=== PATIENT | female | born 1995 | race Caucasian/White ===

== ENCOUNTER → 2019-02-24 15:09 | Outpatient (CLI) | payer BC, SELFPAY ==
[2019-02-24 17:34] LABS: Chlamydia Trachomatis by PCR Negative (Negative); Neisserai gonorrhoeae by PCR Negative (Negative); Probe Check PASS; Sample Adequacy Control PASS; Specimen Processing Control PASS
[2019-03-01 16:34] LABS: HPV Reflexed? NOT INDICATED
== END ==
PROVIDERS: Visit Provider Obstetrics & Gynecology
DX: Z12.4 Encounter for screening for malignant neoplasm of cervix (principal); Z11.3 Encounter for screening for infections with a predominantly sexual mode of transmission; Z34.81 Encounter for supervision of other normal pregnancy, first trimester
CPT/HCPCS: 87491; 87591; 88175; G0145

== ENCOUNTER → 2019-03-22 16:42 | Outpatient (CLI) | payer BC, SELFPAY ==
[2019-03-22 17:26] LABS: Absolute Lymphocyte Count 1.95 X10^3/ul (0.83-4.51); Absolute Neutrophil Count 4.3 X10^3/uL (2.0-7.7); Basophil# 0.01 X10^3/uL; Basophil% 0.1 % (0-1); Eosinophils% 1.5 % (0-5); Hematocrit 35.6 % (37-47); Hemoglobin 12.1 g/dl (12.0-15.0); Lymphocyte # 1.95 X10^3/ul (4.0); Lymphocyte % 28.7 % (19-41); Mean Corpuscular Hgb 29.3 pg (27.0-32.0); Mean Corpuscular Volume 86.2 fL (81-99); Mean Platelet Vol. 9.7 fl (6.2-12.0); Monocyte# 0.43 X10^3/uL; Monocyte% 6.3 % (0-10); Neutrophil # 4.29 X10^3/uL (2.7-7.7); Neutrophil % 63.3 % (47-70); Platelet Count 199 K/mm3 (150-450); RBC Distribution Width CV 12.2 % (11.6-14.6); RBC Distribution Width SD 38.3 fl (35.1-43.9); Red Blood Count 4.13 M/mm3 (4.2-5.4); White Blood Count 6.8 K/mm3 (4.4-11.0)
[2019-03-22 17:33] LABS: POSITIVE COUNT NO; POSITIVE DIFFERENTIAL NO; POSITIVE MORPHOLOGY NO
[2019-03-22 17:40] LABS: Color, Urine Yellow (Yellow); Glucose, Dipstick Normal (Normal); Ketone-Dipstick Negative (Negative); Leukocyte Esterase-Dipstick 25 /ul (Negative); Nitrite-Dipstick Negative (Negative); Occult Blood-Urine Negative /ul (Negative); Protein-Dipstick Negative (Negative); Specific Gravity, Urine 1.025 (1.002-1.030); Urine Bilirubin Dipstick Negative (Negative); Urine Clarity Cloudy (Clear); Urine Urobilinogen Normal (Normal)
[2019-03-22 18:06] LABS: Thyroid Stim Hormone (TSH) 1.46 uIU/mL (0.358-3.74)
[2019-03-23 10:33] LABS: HIV - WCH Non-Reactive (Nonreactive); Hepatitis B Surface Antigen Non-Reactive (Nonreactive); Rubella IgG 45.4 IU/mL
[2019-03-25 01:18] LABS: Prenatal RPR NONREACTIVE (NONREACTIVE)
[2019-03-27 11:35] LABS: Hepatitis C Antibody Non-Reactive (Nonreactive)
== END ==
PROVIDERS: Visit Provider Obstetrics & Gynecology
DX: Z34.81 Encounter for supervision of other normal pregnancy, first trimester (principal)
CPT/HCPCS: 36415; 81002; 84443; 85025; 86703; 86762; 86803; 87340

== ENCOUNTER → 2019-05-04 11:27 | Outpatient (CLI) | payer BC, SELFPAY ==
[2019-05-04 11:38] LABS: Mucous, Urine 0 SEEN /hpf (<or=2+)
[2019-05-04 13:42] LABS: Color, Urine Yellow (Yellow); Glucose, Dipstick Normal (Normal); Ketone-Dipstick 5 mg/dl (Negative); Leukocyte Esterase-Dipstick Negative /ul (Negative); Nitrite-Dipstick Negative (Negative); Occult Blood-Urine Negative /ul (Negative); Protein-Dipstick Negative (Negative); Urine Bilirubin Dipstick Negative (Negative); Urine Clarity Sl. Cloudy (Clear); Urine Urobilinogen Normal (Normal)
[2019-05-04 13:43] LABS: Hematocrit 35.1 % (37-47); Hemoglobin 11.7 g/dL (12.0-15.0); Mean Corp Hgb Conc 33.3 g/dL (32-36); Mean Corpuscular Hgb 30.8 pg (27.0-32.0); Mean Corpuscular Volume 92.4 fL (81-99); Platelet Count 206 K/mm3 (150-450); RBC Distribution Width SD 43.7 fl (35.1-43.9); White Blood Count 9.3 K/mm3 (4.4-11.0)
[2019-05-04 13:49] LABS: Red Blood Cells-Urine 0-5 SEEN /hpf (0-5); Squamous Epithelial Cells - UA 5-10 SEEN /hpf (5-10); White Blood Cells 0-5 SEEN /hpf (0-5)
[2019-05-04 13:50] LABS: Amorphous Sediment 2+; Bacteria 1+ /hpf (None Seen)
[2019-05-04 13:54] LABS: AST(SGOT) 17 U/L (15-37); Alanine Aminotransfer ALT/SGPT 23 U/L (13-56); Albumin, Serum 3.5 g/dL (3.2-5.0); Alkaline Phosphatase 53 U/L (45-117); Anion Gap 7 (5-15); BUN 10 mg/dL (7-18); BUN/Creat Ratio 16.1 RATIO (10-20); Calcium,Total 8.6 mg/dL (8.5-10.1); Chloride 107 mmol/L (98-107); Creatinine, Serum 0.62 mg/dL (0.55-1.02); EST Glomerular Filtration Rate 126 mL/min (>60); Est Glom Filt Rate - Afr Amer 153 mL/min (>60); Globulin 3.4 g/dL (2.2-4.2); Glucose 92 mg/dL (74-106); Protein, Total 6.9 g/dL (6.4-8.2); Sodium Level 140 mmol/L (136-145)
== END ==
PROVIDERS: Visit Provider Obstetrics & Gynecology
DX: M54.9 Dorsalgia, unspecified (principal)
CPT/HCPCS: 36415; 80053; 81001; 85027; 87086; 87088

== ENCOUNTER 2019-05-23 08:06 | Emergency (ER) | payer BC, SELFPAY ==
[2019-05-23 08:06] VITALS: BP 107/69; PULSE 102; RESP 18; TEMP 36.6; O2SAT 99; BMI 19.8
--- NOTE | 2019-05-23 08:40 | ED.DCSUM_ITS ---
History of Present Illness Chief Complaint: Back Current Severity: Moderate Maximum Severity: Moderate Narrative: She presents with 2 to 3-week history of paraspinal pain. She is in her second trimester . She had quite a tumultuous first trimester with quite a bit of vomiting, she thinks this may have started her symptoms. She has seen a chiropractor and this certainly improved her symptoms. She denies any chest pain shortness of breath fever or chills. No cough or congestion. There is no radiculopathy. There is no bowel or bladder compromise. No dysuria. She saw her [employer] POLICE OFFICER had a urinalysis and the urine culture which were negative. Pain is constant, waxing and waning, achy Past Medical History - Allergies and Home Meds Allergies/Adverse Reactions: Allergies No Known Allergies Allergy (Verified 05/23/19 08:08) Primary Care Physician: Care Physician,No Primary [Primary Care Provider] - Past Medical History: None Lives: Spouse/ Significant Other Smoking Status: Never smoker Review of Systems All systems negative except as indicated General: Denies: Fever Cardiovascular: Denies: Chest pain Respiratory: Denies: Dyspnea Gastrointestinal: Reports: Nausea, - - She has nausea of , she is not nauseated now but she still has episodes in the second trimester. Denies: Abdominal pain, Vomiting Genitourinary: Denies: Dysuria, Hematuria, Frequency Musculoskeletal: Reports: Back pain. Denies: Neck pain Skin: Denies: Abrasions Neurological: Denies: Weakness, Parasthesia, Numbness Hematologic: Denies: Easy bruising Physical Exam Vital Signs/Narrative: Vital Signs Temp Pulse Resp BP Pulse Ox 05/23/19 08:06 97.9 F 102 H 18 107/69 99 General: Well nourished, Well developed ENT: Moist mucous membranes Cardiovascular: Regular rate, Regular rhythm Respiratory: No distress, CTA bilaterally Abdomen: Soft, Nontender, - - Gravid to date Back: - - There is lower thoracic and upper lumbar paraspinal tenderness. There is no spinal tenderness. Extremities: No edema. Negative for: Tenderness Skin: Normal color Neurological: - - Equal patellar reflexes bilaterally, 2+. Normal Achilles reflexes. Negative straight leg test. Normal plantar flexion of both feet normal dorsiflexion of both great toes Diagnostic/Tx/Re-eval - Medical Decision Making Patient has paraspinal tenderness, this is quite reproducible and muscular. No further imaging is needed. After trigger point injections with 1% lidocaine her symptoms significantly improved. I will discharge her with muscle relaxants and analgesia for home. Procedures Procedure(s): Trigger point injection: Total of 8 mL of 1% lidocaine without epinephrine were used. 2 different trigger points along the right side paraspinal muscles were used. Patient tolerated procedure well she improved. ED Disposition - Plan for ED Patient: Disposition: Home or Assisted Living Instructions: Back Sprain/Strain Prescriptions: Hydrocodone Bitart/Apap 5-325 [[place] 5MG-325MG] 1 tab PO Q4H PRN PRN 3 Days #12 tab PRN Reason: Pain Prescription Printed Diazepam [Valium] 5 mg PO TID PRN #12 tab PRN Reason: Muscle Spasm Prescription Printed Referrals: Hayes Edwards DO [NON-STAFF] -
[2019-05-23] MEDS: diazePAM 5 MG Tablet PO (09:00)
[2019-05-23] MEDS: oxyCODONE 5 MG Tablet PO (09:00)
--- NOTE | 2019-05-23 09:05 | ED.VIS.GEN ---
History of Present Illness Chief Complaint: Back Past Medical History - Allergies and Home Meds Allergies/Adverse Reactions: Allergies No Known Allergies Allergy (Verified 05/23/19 08:08) Primary Care Physician: Hayes Edwards DO [NON-STAFF] - Lives: Spouse/ Significant Other Smoking Status: Never smoker Physical Exam Vital Signs/Narrative: Vital Signs Temp Pulse Resp BP Pulse Ox 05/23/19 08:06 97.9 F 102 H 18 107/69 99 ED Disposition - Plan for ED Patient: Disposition: Home or Assisted Living Instructions: Back Sprain/Strain Prescriptions: Hydrocodone Bitart/Apap 5-325 [[place] 5MG-325MG] 1 tab PO Q4H PRN PRN 3 Days #12 tab PRN Reason: Pain Prescription Printed Diazepam [Valium] 5 mg PO TID PRN #12 tab PRN Reason: Muscle Spasm Prescription Printed Referrals: Areli Manriquez MD [STAFF PHYSICIAN] - 3-5 Days
== END 2019-05-23 09:17 | disposition home or self-care (01) ==
PROVIDERS: Emergency Provider Emergency Medicine
DX: M54.9 Dorsalgia, unspecified (principal); O26.892 Other specified pregnancy related conditions, second trimester; R11.0 Nausea; Z79.899 Other long term (current) drug therapy; Z3A.00 Weeks of gestation of pregnancy not specified
CPT/HCPCS: 20552; 99283; A4216

== ENCOUNTER 2019-05-25 18:25 | Outpatient (CLI) | payer BC, SELFPAY ==
[2019-05-25 18:46] VITALS: BMI 20.2
[2019-05-25 19:24] LABS: Red Blood Cells-Urine 0 SEEN /hpf (0-5)
[2019-05-25 19:26] LABS: Color, Urine Yellow (Yellow); Glucose, Dipstick Normal (Normal); Leukocyte Esterase-Dipstick 25 /ul (Negative); Nitrite-Dipstick Negative (Negative); Occult Blood-Urine Negative /ul (Negative); Protein-Dipstick Negative (Negative); Specific Gravity, Urine 1.015 (1.002-1.030); Urine Bilirubin Dipstick Negative (Negative); Urine Clarity Clear (Clear); Urine Urobilinogen 4 mg/dl (Normal)
[2019-05-25 19:30] LABS: Ketone-Dipstick 150 mg/dl (Negative)
[2019-05-25 19:32] LABS: White Blood Cells 0-5 SEEN /hpf (0-5)
[2019-05-25 19:33] LABS: Bacteria 1+ /hpf (None Seen); Mucous, Urine 0 SEEN /hpf (<or=2+); Squamous Epithelial Cells - UA 0-5 SEEN /hpf (5-10)
--- NOTE | 2019-05-25 19:43 | OB.TRI.NOTE ---
History of Present Illness Reason For Visit: BACK PAIN Allergies No Known Allergies Allergy (Verified 05/23/19 08:08) Laboratory Studies: Laboratory Tests 05/25/19 Range/Units 18:50 Urine Color Yellow (Yellow) Urine Clarity Clear (Clear) Urine pH 6.0 (5.0 - 8.0) Ur Specific [place] 1.015 (1.002-1.030) Urine Protein Negative (Negative) mg/dl Urine Glucose (UA) Normal (Normal) mg/dl Urine Ketones 150 H (Negative) mg/dl Urine Occult Blood Negative (Negative) /ul Urine Nitrite Negative (Negative) Urine Bilirubin Negative (Negative) mg/dL Urine Urobilinogen 4 H (Normal) mg/dl Ur Leukocyte Esterase 25 H (Negative) /ul Urine RBC 0 SEEN (0-5) /hpf Urine WBC 0-5 SEEN (0-5) /hpf Ur Squamous Epith Cells 0-5 SEEN (5-10) /hpf Urine Bacteria 1+ (None Seen) /hpf Urine Mucus 0 SEEN (<or=2+) /hpf
[2019-05-25] MEDS: Dextrose 5%-Lactated Ringers 1,000 ML 999 ML IV (19:55)
--- NOTE | 2019-05-25 22:01 | OB.TRI.HP_ITS ---
History of Present Illness Date of Service: 05/25/19 Was patient seen by the physician?: Yes Reason For Visit: BACK PAIN Date of Service: 05/25/19 Final CALEB: 09/30/19 Gestational age: 21 Weeks and 5 Days History of Present Illness: Aixa states she was in the ER earlier this week with left lower back pain; she denies urinary frequency, urgency, burning or itching. She was given a prescription for [place] 5-325, 1 PO Q 4 hours as needed, for a total of 12 doses with no refills, and Diazepam, 5mg PO 3 times daily as needed, for a total of 12 doses, also with no refills. She states she has not taken either of these medications out of concern for the safety of her . She reports frequent nausea, for which she is taking Zofran at home; she denies vomiting. She states that she has eaten or drank very little over the past 3 days and feels very weak. Allergies No Known Allergies Allergy (Verified 05/23/19 08:08) Laboratory Studies: Laboratory Tests 05/25/19 Range/Units 18:50 Urine Color Yellow (Yellow) Urine Clarity Clear (Clear) Urine pH 6.0 (5.0 - 8.0) Ur Specific [place] 1.015 (1.002-1.030) Urine Protein Negative (Negative) mg/dl Urine Glucose (UA) Normal (Normal) mg/dl Urine Ketones 150 H (Negative) mg/dl Urine Occult Blood Negative (Negative) /ul Urine Nitrite Negative (Negative) Urine Bilirubin Negative (Negative) mg/dL Urine Urobilinogen 4 H (Normal) mg/dl Ur Leukocyte Esterase 25 H (Negative) /ul Urine RBC 0 SEEN (0-5) /hpf Urine WBC 0-5 SEEN (0-5) /hpf Ur Squamous Epith Cells 0-5 SEEN (5-10) /hpf Urine Bacteria 1+ (None Seen) /hpf Urine Mucus 0 SEEN (<or=2+) /hpf Physical Exam General: Alert, Oriented x3, Cooperative, Lethargic HEENT: PERRLA Cardiovascular: Regular rate, Regular Rhythm Lungs: Clear to auscultation Abdomen: Soft, Non Tender, Non-Distended, Gravid, - - Positive CVA tenderness lower right side Extremities:: No cyanosis, No edema, Normal pulses Neurological: Cranial nerves II-XII grossly intact, Deep Tendon Reflexes 2+/4 and Symmetrical, Neuro grossly intact, Muscle tone normal Estimated gestational size: Appropriate for gestational size Presentation: Unable to assess NST - FHR Rate Baby A Baseline: 140 Variability:: Moderate Accelerations:: 10 x 10 Decelerations:: None NST Reactive:: Appropriate for gestational age Uterine Activity:: Irritability resolving with IV hydration Impression/Plan Impression: IUP @ 21w5d FHTs appropriate for gestational age Uterine irritability resolving Urinary Ketonuria UTI Weakness related to poor nutrition over past 3 days Plan: D5LR, 500ml bolus, then 500ml at 125 ml/hr Regular diet Discussed with Dr. Benny Wilkins, 1 gm IVPB x 1 now Keflex 500mg PO TID x 3 days Discharge home with instructions for comfort measures, nutritional and PO hy dration measures, and use of previously prescribed pain medication Keep next appointment with Dr. Manriquez Call if s/s do not resolve
[2019-05-25] MEDS: Cefazolin 1 GM/50 ML BAG IV (22:58)
[2019-05-26 00:02] VITALS: BP 96/53; PULSE 81; RESP 18; TEMP 36.6
== END 2019-05-25 23:55 | disposition home or self-care (01) ==
LOC: WPOUT 18:32 → WP 18:32
PROVIDERS: Referring Provider Obstetrics & Gynecology; Visit Provider Obstetrics & Gynecology
DX: O23.42 Unspecified infection of urinary tract in pregnancy, second trimester (principal); R82.4 Acetonuria; R11.0 Nausea; Z3A.21 21 weeks gestation of pregnancy
CPT/HCPCS: 96361 ×3; 96365; 59025; 59050; 81001; 87086; 87088; 99218; G0378

== ENCOUNTER → 2019-07-13 08:34 | Outpatient (CLI) | payer BC, SELFPAY ==
[2019-07-13 10:42] LABS: Hematocrit 32.7 % (37-47); Hemoglobin 10.8 g/dL (12.0-15.0); Mean Corpuscular Hgb 30.9 pg (27.0-32.0); Mean Corpuscular Volume 93.4 fL (81-99); Platelet Count 212 K/mm3 (150-450); RBC Distribution Width CV 12.7 % (11.6-14.6); RBC Distribution Width SD 43.9 fl (35.1-43.9); White Blood Count 7.2 K/mm3 (4.4-11.0)
[2019-07-13 10:48] LABS: Glucose Challenge Gest 1H 50g 109 mg/dL (70-140)
== END ==
PROVIDERS: Visit Provider Obstetrics & Gynecology
DX: Z34.83 Encounter for supervision of other normal pregnancy, third trimester (principal)
CPT/HCPCS: 36415; 82950; 85027

== ENCOUNTER → 2019-09-07 14:51 | Outpatient (CLI) | payer BC, SELFPAY | PROVIDERS: Visit Provider Obstetrics & Gynecology | DX: Z36.85 Encounter for antenatal screening for Streptococcus B (principal) | CPT/HCPCS: 87081 ==

== ENCOUNTER 2019-10-05 15:57 | Inpatient (IN) | payer BC, SELFPAY ==
[2019-10-05 16:05] VITALS: BMI 24.3
[2019-10-05] MEDS: 0.9% Saline Lock 10 ML Syringe IV (16:25)
[2019-10-05 16:40] LABS: Absolute Lymphocyte Count 1.85 X10^3/uL (0.83-4.51); Absolute Neutrophil Count 7.6 X10^3/uL (2.0-7.7); Basophil# 0.02 X10^3/uL; Basophil% 0.2 % (0-1); Eosinophil# 0.06 X10^3/uL; Eosinophils% 0.6 % (0-5); Hematocrit 37.4 % (37-47); Hemoglobin 12.4 g/dL (12.0-15.0); Lymphocyte # 1.85 X10^3/ul (4.0); Lymphocyte % 17.9 % (19-41); Mean Corp Hgb Conc 33.2 g/dL (32-36); Mean Corpuscular Hgb 29.3 pg (27.0-32.0); Mean Corpuscular Volume 88.4 fL (81-99); Mean Platelet Vol. 10.8 fl (6.2-12.0); Monocyte% 6.8 % (0-10); NRBC Flagged by Analyzer 0 % (0-5); Neutrophil # 7.64 X10^3/uL (2.7-7.7); Platelet Count 244 K/mm3 (150-450); RBC Distribution Width SD 41.9 fl (35.1-43.9); Red Blood Count 4.23 M/mm3 (4.2-5.4); White Blood Count 10.3 K/mm3 (4.4-11.0)
--- NOTE | 2019-10-05 16:45 | HP.PCM_ITS ---
- Problem List (1) 40 weeks gestation of Status: Acute History Date of Admission: 10/05/19 Final CALEB: 09/30/19 Final CALEB Source: LMP Gestational age: 40 Weeks and 5 Days History of this : This is a 24 year-old, G [], P [], at 40 weeks gestational age. Allergies No Known Allergies Allergy (Verified 10/05/19 16:06) Home Medications: Home Medications 47/Iron/Folate 1/Dha [Virt-Pn Dha Softgel] 1 cap PO DAILY 05/23/19 Smoking Status: Never smoker Alcohol: None Number of Fetus(es): 1 NST - FHR Rate Baby A Baseline: 130 Variability:: Moderate Accelerations:: 15 x 15 Decelerations:: None NST Reactive:: Yes FHR Category:: Category I Uterine Activity:: U2-3 minutes History Past Pregnancies: Past Pregnancies Delivery Date Name GA/ Weeks Outcome Route Wt Sex Labor Length Anesthesia Delivery Location Provider FOB Labs: Mom's Problem List Problem Status Onset Code 40 weeks gestation of Acute Z3A.40 Mom's Labs & Results 10/05/19 10/05/19 16:25 16:25 WBC 10.3 RBC 4.23 Hgb 12.4 Hct 37.4 MCV 88.4 MCH 29.3 MCHC 33.2 RDW Std Deviation 41.9 RDW Coeff of Arielle 13.0 Plt Count 244 MPV 10.8 Immature Gran % (Auto) 0.500 Neut % (Auto) 74.0 H Lymph % (Auto) 17.9 L [place] % (Auto) 6.8 Eos % (Auto) 0.6 Baso % (Auto) 0.2 Absolute Neuts (auto) 7.6 Absolute Lymphs (auto) 1.85 Nucleated RBC % 0 Blood Type A POSITIVE Antibody Screen NEGATIVE Course Did the patient receive Yes care? Labs Blood Type: A RH: POSITIVE RPR/VDRL/Syphilis Nonreactive Rubella status Immune HbSAg Negative Date Done: 03/22/19 Chlamydia Negative Gonorrhea Negative HIV/AIDS Non-Reactive Group B Strep: Negative Current Obstetrical History Gestational Diabetes No Incompetent Cervix No Infertility No IUGR No Macrosomia No Hypertension/Pre-eclampsia No Placenta Previa/Abruption No PTL/PROM No Uterine anomaly No Oligohydramnios No Polyhydramnios No Multiple gestation No Past Medical History Asthma No Diabetes No Hypertension No Heart disease No Mitral valve prolapse No Neurologic/Seizure disorder/ No Migraines Kidney disease No Liver disease No Varicosities No Clotting disorders/Hx of DVT No Thyroid Dysfunction No Other medical diseases No Psychiatric disorders No Major trauma No Abnormal PAP smear No Sleep apnea No Mammogram in the last 2 years No Social History Marital Status: Alleged father Dc Hx Smoking No Smoking Status Never smoker How long have you used n/a substances (years)? Expected Infant Delivery Method: Spontaneous Vaginal Number of Visits: 16 Review of Systems Constitutional: Denies: Chills, Fever, Weight Change HEENT: Denies: Head Aches, Sinus Congestion, Sinus Drainage Cardiovascular: Denies: Chest Pain, Palpitations Respiratory: Denies: Cough, Shortness of breath at rest, Sputum production Gastrointestinal: Denies: Abdominal Pain, Nausea, Vomiting Genitourinary: Denies: Dysuria Musculoskeletal: Denies: Joint Pain, Joint Tenderness Skin: Denies: Rash, Wounds Neurological: Denies: Numbness, Tingling, Focal weakness Psychiatric: Denies: Anxiety, Depression, Homicidal Ideations, Suicidal Ideations Hematologic/ Lymphatic: Denies: Easy Bruising, Easy Bleeding Physical Exam General: Alert, Oriented x3, No apparent distress HEENT: Atraumatic, Normocephalic. Negative for: Thyromegaly, Lymphadenopathy Cardiovascular: Regular rate, Regular Rhythm Lungs: Clear to auscultation Abdomen: Bowel Sounds Present, Gravid Neurological: Deep Tendon Reflexes 2+/4 and Symmetrical, Neuro grossly intact LADLE MECHANIC: Normal external genitalia. Negative for: Vulvar lesions Estimated gestational size: Appropriate for gestational size Presentation: Cephalic Cervix Dilation (cm): 3 Station: -1 Effacement (%): 80 Assessment/Plan All Active Problems 40 weeks gestation of (Acute) A: This is a 24 year-old, G [1], P [0], at 40 weeks gestational age. SVE 3/80/-1 anterior soft Early active labor Baseline FHR 125, +accels, -decels, moderate variability. Category I tracing P: Anticipate plan on chart. Very detailed. Toy Assembly Supervisor with patient. Natural labor with minimal interventions Saline lock okay Delayed cord clamping until cord completely stops pulsating Wants 2 hours of immediate skin to skin, with vernix rubbed into baby. No Erythromycin ointment or Hep B vaccine for infant, but okay for Vitamin K for circumcision Plans to strictly breastfeed and as soon as possible after delivery Declines Pitocin for active management. Educated on expectant management and PPH protocols. Plan to follow plan in detail as close as possible to ensure patient wishes are met, but safety of mother and priority
--- NOTE | 2019-10-05 20:16 | PN_ITS ---
Progress Note This is a late entry for 10/05/2019 at 2000 S: Breathing, moaning through contractions; spouse, marketing operations coordinator bedside and supportive O: AVSS FHTs: 145 baseline with accels, early decelerations, and periodic variable decelerations UCs: Q 2-3 Cervix: 5-6/90/-1; moderate meconium noted with AROM at 1933 A: 24 yo at 40w5d gestation by L=12w4d US Active labor GBS negative A positive Meconium stained fluid Cat 2 FHTs P: Continue to follow plan as closely as possible within limits of maternal/ safety; patient, spouse and marketing operations coordinator aware of change in POC r/t presence of meconium and agreeable with adequate shared decision making Continuous monitoring Pediatrics to attend delivery Anticipate vaginal delivery
[2019-10-05] MEDS: Lactated Ringers 500 ML 999 ML IV (21:13)
--- NOTE | 2019-10-05 22:33 | PCM.OPRPT ---
Vaginal Delivery Maternal Presentation: Active Labor Presented L&D in afternoon in early labor; progressed well to active labor by early evening Amniotic Membrane Rupture Type: Artificial Rupture of Membrane time: 1932 Amniotic Fluid Description: Moderate meconium Final CALEB: 09/30/19 Final CALEB Source: US <20 weeks Gestational age: 41 Weeks and 1 Days Date of Procedure: 10/05/19 Pre-Operative Diagnosis: Labor Post-Operative Diagnosis: Surgery/ Procedure Performed: Spontaneous Vaginal Delivery Type of Anesthesia: Local with 1% lidocaine - for repair of first degree vaginal laceration Description of Procedure: CTSP when she was thin left anterior lip and +1 station; pushed past lip and quickly brought vertex to +2 station; FHR variable decelerations into 60s and 70s with good recovery noted with contractions, variability maintained; maternal position changes, O2 per FM and IV LR bolus provided; continued maternal effort resulted in of a viable male , OA to AMIRA, nuchal cord x 1 reduced at perineum; nuchal hand noted; shoulders followed quickly with gentle maternal effort; placed on maternal abdomen; as moderate meconium had been present since AROM at 1933, cord was immediately clamped by CNM, cut by FOB under CNM supervision, and was bulb suctioned, dried and stimulated by awaiting pediatric personel, APGARs 8/8; placenta delivered spontaneously, Ramirez Mechanism, intact, 3-vessel cord, marginal insertion; arterial and venous cord blood gases were drawn; first degree vaginal laceration repaired with 3-0 Vicryl with local anesthetic of 1% lidocaine, good hemostasis obtained; EBL 250 Presentation: Vertex, AMIRA Placental Delivery Description: Spontaneous Placenta Disposition: [facility] Cord Vessel Description: 3 Vessels Cord Entanglement: Around neck x 1, loose Estimated Blood Loss: 250 A gender: Male (1 minute): 8 (5 minute): 8 Episiotomy Description: None Laceration: Midline, 1st degree
--- NOTE | 2019-10-05 22:52 | DCINST_ITS ---
Discharge Diet: No Restrictions Discharge Activity: Return to Normal Activity, No Restrictions, May Drive, May Shower, May Take a Tub Bath Return to work on:: 11/16/19 - After checkup May resume sexual activity in: 6-8 weeks - after checkup Weight Bearing Status: Weight bearing as tolerated Lifting Restrictions: nothing heavier than the baby x 2 weeks Additional Activity Instructions:: Minimize cooking, cleaning, shopping or long car trips for two weeks; try to get at least 8 hours sleep in 24 hour for the first two weeks - sleep when the baby sleeps Call your doctor if your incision/area has: Continuous Slow Oozing, Sudden Increased Bleeding, Increased Pain/ Swelling, Foul Smelling Discharge Call your doctor if you observe: Fever of 101 or Higher, Coldness, Increased Pain, Change in Color, Inability to urinate, Inability to have a bowel movement, Using more than one pad per hour, Shortness of breath, Dizziness, Chest pain, In creased palpitations (irregular heartbeat), Calf discomfort, Uncontrolled pain Suture Line Care: Avoid Pulling/Pushing Additional Instructions: If you experience any of the following, contact your healthcare provider. * Bleeding that soaks a pad every hour for 2 hours * Fever 100.4 or higher * Unrelieved incision or abdominal pain * Swelling, redness, discharge or bleeding from your incision or episiotomy site * Your incision begins to separate * Problems urinating (including inability to urinate or burning while urinating) . * Visual changes * Severe headache * Flu-like symptoms * Pain or redness in one of both of your breasts * Pain, warmth, tenderness or swelling in your legs, especially the calf area * Frequent nausea and vomiting * Symptoms of depression or anxiety If you experience any of the following, call 911 or go to the nearest Emergency Room. * Chest pain * Problems breathing * Seizure activity * Partial or complete paralysis of a body part, slurred speech, weakness or drooping of the face, or a sudden inability to walk or hold your balance Allergies/Adverse Reactions: Allergies No Known Allergies Allergy (Verified 10/05/19 16:06) Medications to take at Discharge RX: 47/Iron/Folate 1/Dha [Virt-Pn Dha Softgel] 1 cap PO DAILY 05/23/19 Please Follow Up With: Pamela Power CNM When: 6 weeks for checkup Primary Care Physician: Care Physician,No Primary [Primary Care Provider] - Test Results: Test results from this visit will be discussed in further detail at your follow- up appointment, if applicable.
[2019-10-06 04:00] VITALS: BP 111/65; PULSE 91; RESP 18; TEMP 36.5
[2019-10-06 07:46] VITALS: BP 122/69; PULSE 92; RESP 18; TEMP 37
[2019-10-06 08:28] LABS: Hematocrit 36.5 % (37-47); Hemoglobin 12.2 g/dL (12.0-15.0); Mean Corp Hgb Conc 33.4 g/dL (32-36); Mean Corpuscular Hgb 29.5 pg (27.0-32.0); Mean Corpuscular Volume 88.4 fL (81-99); Mean Platelet Vol. 10.6 fl (6.2-12.0); Platelet Count 244 K/mm3 (150-450); RBC Distribution Width CV 13.2 % (11.6-14.6); RBC Distribution Width SD 42.5 fl (35.1-43.9); Red Blood Count 4.13 M/mm3 (4.2-5.4); White Blood Count 13.9 K/mm3 (4.4-11.0)
--- NOTE | 2019-10-06 08:39 | PCM.PN.OB ---
Patient Problems: Active and Suspected Problems 40 weeks gestation of (Acute) Subjective: Minimal diet so far but tolerating well; pain well controlled, passing flatus, has been up and voided twice; well; spouse and family bedside and supportive Objective: AVSS Breasts soft, nipples atraumatic Fundus firm, midline, u/2, lochia small Perineal repair well approximated, edematous, no drainage, erythema or ecchymosis noted - Physical Exam Vitals/I&O's: Vital Signs Temp Pulse Resp BP 98.6 F 92 18 122/69 H 10/06/19 07:46 10/06/19 07:46 10/06/19 07:46 10/06/19 07:46 Oxygen Delivery Method Room Air Weight: 155 lb 6.814 oz Body Mass Index (BMI) 24.3 Intake and Output for Last 24 Hours 10/04/19 10/05/19 10/06/19 23:59 23:59 23:59 Intake Total 366.3 / 366.3 Balance 366.3 / 366.3 General: Alert, Oriented x3, Cooperative, No apparent distress HEENT: PERRLA, EOMI Oral: Moist Mucosa Neck: Supple Lungs: Clear to auscultation, Normal air movement Cardiovascular: Regular rate, Regular Rhythm Abdomen: Bowel Sounds Present, Soft, Non Tender, Non-Distended, Passing Flatus Extremities: No edema, Capillary Refill Less than 3 Seconds, No Calf Tenderness Skin: No rashes Musculoskeletal: No Tenderness to Palpation of Joints or Extremities Neurological: Cranial nerves II-XII grossly intact, Deep Tendon Reflexes 2+/4 and Symmetrical, Neuro grossly intact Psych/Mental Status: Normal Affect, Appropriate, Alert and oriented to time, place, person, mood and affect Laboratory Results 10/05/19 16:25: WBC 10.3, RBC 4.23, Hgb 12.4, Hct 37.4, MCV 88.4, MCH 29.3, MCHC 33.2, RDW Std Deviation 41.9, RDW Coeff of [place] 13.0, Plt Count 244, MPV 10.8, Immature Gran % (Auto) 0.500, Neut % (Auto) 74.0 H, Lymph % (Auto) 17.9 L, [place] % (Auto) 6.8, Eos % (Auto) 0.6, Baso % (Auto) 0.2, Absolute Neuts (auto) 7.6, Absolute Lymphs (auto) 1.85, Nucleated RBC % 0 10/05/19 16:25: Blood Type A POSITIVE, Antibody Screen NEGATIVE 10/06/19 08:15: WBC 13.9 H, RBC 4.13 L, Hgb 12.2, Hct 36.5 L, MCV 88.4, MCH 29.5, MCHC 33.4, RDW Std Deviation 42.5, RDW Coeff of [place] 13.2, Plt Count 244, MPV 10.6 Current Medications Acetaminophen (Tylenol) 1,000 mg PO Q8H PRN PRN PRN Reason: Pain Score 1-3/10 Bisacodyl (Dulcolax) 10 mg RECTAL UD PRN PRN Reason: If no BM Dibucaine (Dibucaine) 1 applic TOPICAL TID PRN PRN; Protocol PRN Reason: Discomfort Hydrocortisone (Hytone) 1 applic TOPICAL TID PRN PRN; Protocol PRN Reason: Discomfort Ibuprofen (Motrin) 600 mg PO Q6H PRN PRN PRN Reason: Pain Score 1-3/10 Methylergonovine Maleate (Methergine) 0.2 mg IM X1 PRN PRN Reason: Excess bleeding/uterine atony Ondansetron HCl (Zofran) 4 mg IV Q4H PRN PRN PRN Reason: Nausea Senna/Docusate Sodium (Senokot-S, Jenny-Colace) 1 - 2 tablet PO DAILY PRN PRN PRN Reason: Constipation Simethicone (Mylicon) 80 mg PO PCHS PRN PRN Reason: Indigestion/Stomach pain Sodium Chloride () 5 - 15 ml IV UD PRN PRN Reason: SALINE FLUSH Medical Necessity - Tobacco Use Smoking Status: Never smoker Assessment/Plan All Active Problems 40 weeks gestation of (Acute) Assessment: 24yo G1 now P1001 delivered via at 40w5d gestation by L=12w4d Plan: Discharge teaching started Continue routine care DC home tomorrow if remains stable
[2019-10-06] MEDS: Ibuprofen 600 MG Tablet PO ×2 (09:12→19:54)
[2019-10-06 12:15] VITALS: BP 120/70; PULSE 97; TEMP 37.1; O2SAT 96
[2019-10-06 16:10] VITALS: BP 107/74; PULSE 93; RESP 16; TEMP 37.1; O2SAT 98
[2019-10-06 19:57] VITALS: BP 128/80; PULSE 104; RESP 16; TEMP 37.1; O2SAT 99
[2019-10-07 02:05] VITALS: BP 112/68; PULSE 85; RESP 16; TEMP 36.6
[2019-10-07 08:31] VITALS: BP 114/61; PULSE 92; RESP 18; TEMP 36.9
[2019-10-07] MEDS: Ibuprofen 600 MG Tablet PO (09:25)
--- NOTE | 2019-10-07 10:35 | NURSING ---
this RN called office to to request dc order for patient. patient had been seen by Pierce this morning and verbal order for dc but no written order yet
[2019-10-07 11:23] VITALS: BP 117/66; PULSE 96; RESP 16; TEMP 36.6
--- NOTE | 2019-10-08 13:21 | PCM.PN.OB ---
Subjective: This is a late entry for 10/07/19 0800 Pain well controlled, tolerating diet, passing flatus, well; spouse bedside and supportive Objective: AVSS Breasts filling, nipples tender but otherwise atraumatic Fundus firm, midline, u/2, lochia small Perineal repair well approximated, edema improving, no drainage, erythema or ecchymosis noted - Physical Exam Vitals/I&O's: Vital Signs Temp Pulse Resp BP Pulse Ox 97.9 F 96 16 117/66 99 10/07/19 11:23 10/07/19 11:23 10/07/19 11:23 10/07/19 11:23 10/06/19 19:57 Oxygen Delivery Method Room Air Weight: 155 lb 6.814 oz Body Mass Index (BMI) 24.3 General: Alert, Oriented x3, Cooperative, No apparent distress HEENT: PERRLA, EOMI Oral: Moist Mucosa Neck: Supple Lungs: Clear to auscultation, Normal air movement Cardiovascular: Regular rate, Regular Rhythm Abdomen: Bowel Sounds Present, Soft, Non Tender, Non-Distended, Passing Flatus Extremities: No edema, Capillary Refill Less than 3 Seconds, No Calf Tenderness Skin: No rashes Musculoskeletal: No Tenderness to Palpation of Joints or Extremities Neurological: Cranial nerves II-XII grossly intact, Deep Tendon Reflexes 2+/4 and Symmetrical, Neuro grossly intact Psych/Mental Status: Normal Affect, Appropriate, Alert and oriented to time, place, person, mood and affect Medical Necessity - Tobacco Use Smoking Status: Never smoker Assessment/Plan All Active Problems 40 weeks gestation of (Acute) Assessment: 24yo G1 now P1001 delivered via at 40w5d gestation by L=12w4d PP Day #1 Normal involution, normal PP course day #2, normal involution, normal course Plan: Discharge teaching completed Discharge home today RTO 6 weeks for PP checkup
== END 2019-10-07 12:30 | disposition home or self-care (01) | DRG 807 ==
PROVIDERS: Admitting Provider Advanced Practice Midwife; Referring Provider Obstetrics & Gynecology; Visit Provider Advanced Practice Midwife
DX: O69.81X0 Labor and delivery complicated by cord around neck, without compression, not applicable or unspecified (principal); O70.0 First degree perineal laceration during delivery; O77.0 Labor and delivery complicated by meconium in amniotic fluid; O76 Abnormality in fetal heart rate and rhythm complicating labor and delivery; Z3A.40 40 weeks gestation of pregnancy; Z37.0 Single live birth
CPT/HCPCS: 59025; 59050; 85025; 85027; 86850; 86900; 86901; 99218; J7120; A4216; G0378

== ENCOUNTER → 2019-10-14 20:30 | Outpatient (CLI) | payer BC, SELFPAY ==
[2019-10-05 16:05] VITALS: BMI 24.3
== END ==
PROVIDERS: Referring Provider Advanced Practice Midwife; Visit Provider Advanced Practice Midwife
DX: O92.79 Other disorders of lactation (principal)
CPT/HCPCS: 96152

== ENCOUNTER → 2021-05-27 | Outpatient (CLI) | payer BC, SELFPAY ==
[2021-05-27 18:05] LABS: Amphetamine Urine VISTA NEGATIVE (<1000 ng/mL); Barbiturate Urine VISTA NEGATIVE (< 200 ng/mL); Benzodiazepine Urine VISTA NEGATIVE (< 200 ng/mL); Cocaine Urine VISTA NEGATIVE (< 300 ng/mL); Ecstacy Urine VISTA NEGATIVE (< 500 ng/mL); Methadone Urine VISTA NEGATIVE (< 300 ng/mL); PCP Urine VISTA NEGATIVE (< 25 ng/mL); THC Urine VISTA NEGATIVE (< 50 ng/mL); Vista UDS pH Range 6
[2021-05-30 03:07] LABS: Chlamydia By Nucleic Acid AMP Negative (Negative)
[2021-05-30 07:44] LABS: Gonococcus By Nucleic Acid AMP Negative (Negative)
== END | disposition home or self-care (01) ==
LOC: LABSPEC 16:43
PROVIDERS: Referring Provider Obstetrics & Gynecology; Visit Provider Obstetrics & Gynecology
DX: Z34.80 Encounter for supervision of other normal pregnancy, unspecified trimester (principal)
CPT/HCPCS: 80307; 87086; 87491; 87591

== ENCOUNTER → 2021-06-26 14:20 | Outpatient (CLI) | payer BC, SELFPAY ==
[2021-06-26 14:37] LABS: Absolute Lymphocyte Count 1.48 X10^3/uL (0.83-4.51); Absolute Neutrophil Count 4.9 X10^3/uL (2.0-7.7); Basophil# 0.01 X10^3/uL; Basophil% 0.1 % (0-1); Eosinophil# 0.11 X10^3/uL; Eosinophils% 1.6 % (0-5); Hematocrit 33.9 % (37-47); Hemoglobin 11.2 g/dL (12.0-15.0); Lymphocyte # 1.48 X10^3/ul (0.83-4.51); Lymphocyte % 20.9 % (19-41); Mean Corpuscular Hgb 29.9 pg (27.0-32.0); Mean Corpuscular Volume 90.4 fL (81-99); Mean Platelet Vol. 9.7 fl (6.2-12.0); Monocyte# 0.55 X10^3/uL; Monocyte% 7.8 % (0-10); NRBC Flagged by Analyzer 0 % (0-5); Neutrophil # 4.91 X10^3/uL (2.7-7.7); Neutrophil % 69.3 % (47-70); Platelet Count 213 K/mm3 (150-450); RBC Distribution Width CV 12.8 % (11.6-14.6); RBC Distribution Width SD 41.3 fl (35.1-43.9); Red Blood Count 3.75 M/mm3 (4.2-5.4); White Blood Count 7.1 K/mm3 (4.4-11.0)
[2021-06-26 15:47] LABS: HIV - WCH Non-Reactive (Nonreactive); Hepatitis B Surface Antigen Non-Reactive (Nonreactive); Hepatitis C Antibody Non-Reactive (Nonreactive); Rubella IgG Reactive (Nonreactive); Syphilis Antibodies Non-reactive
== END ==
PROVIDERS: Referring Provider Obstetrics & Gynecology; Visit Provider Obstetrics & Gynecology
DX: Z34.80 Encounter for supervision of other normal pregnancy, unspecified trimester (principal)
CPT/HCPCS: 36415; 85025; 86703; 86762; 86780; 86803; 86850; 86900; 86901; 87340

== ENCOUNTER → 2021-08-08 09:54 | Outpatient (CLI) | payer BC, SELFPAY ==
[2021-08-08 10:58] LABS: NATERA MAILED SPECIMEN
== END ==
PROVIDERS: Referring Provider Obstetrics & Gynecology; Visit Provider Obstetrics & Gynecology
DX: Z34.81 Encounter for supervision of other normal pregnancy, first trimester (principal)
CPT/HCPCS: 36415

== ENCOUNTER → 2021-09-16 14:38 | Outpatient (CLI) | payer BC, SELFPAY ==
[2021-09-16 14:54] LABS: Absolute Lymphocyte Count 1.37 X10^3/uL (0.83-4.51); Absolute Neutrophil Count 4.8 X10^3/uL (2.0-7.7); Basophil# 0.02 X10^3/uL; Basophil% 0.3 % (0-1); Eosinophil# 0.09 X10^3/uL; Eosinophils% 1.3 % (0-5); Hematocrit 30.1 % (37-47); Lymphocyte # 1.37 X10^3/ul (0.83-4.51); Mean Corp Hgb Conc 33.2 g/dL (32-36); Mean Corpuscular Hgb 30.7 pg (27.0-32.0); Mean Corpuscular Volume 92.3 fL (81-99); Mean Platelet Vol. 9.4 fl (6.2-12.0); Monocyte# 0.59 X10^3/uL; Monocyte% 8.6 % (0-10); NRBC Flagged by Analyzer 0 % (0-5); Neutrophil # 4.75 X10^3/uL (2.7-7.7); Neutrophil % 69.2 % (47-70); Platelet Count 237 K/mm3 (150-450); RBC Distribution Width CV 12.5 % (11.6-14.6); RBC Distribution Width SD 42.2 fl (35.1-43.9); Red Blood Count 3.26 M/mm3 (4.2-5.4); White Blood Count 6.9 K/mm3 (4.4-11.0)
[2021-09-16 15:04] LABS: Glucose Challenge Gest 1H 50g 94 mg/dL (70-140)
== END ==
PROVIDERS: Referring Provider Obstetrics & Gynecology; Visit Provider Obstetrics & Gynecology
DX: Z34.80 Encounter for supervision of other normal pregnancy, unspecified trimester (principal); Z13.1 Encounter for screening for diabetes mellitus
CPT/HCPCS: 36415; 82950; 85025

== ENCOUNTER 2021-11-04 15:25 | Outpatient (CLI) | payer BC, SELFPAY ==
[2021-11-04 15:45] LABS: Absolute Lymphocyte Count 0.83 X10^3/uL (0.83-4.51); Absolute Neutrophil Count 5.9 X10^3/uL (2.0-7.7); Basophil# 0.02 X10^3/uL; Basophil% 0.3 % (0-1); Eosinophil# 0.05 X10^3/uL; Eosinophils% 0.7 % (0-5); Hematocrit 30.9 % (37-47); Hemoglobin 10.2 g/dL (12.0-15.0); Lymphocyte # 0.83 X10^3/ul (0.83-4.51); Lymphocyte % 11.1 % (19-41); Mean Corpuscular Hgb 30.1 pg (27.0-32.0); Mean Corpuscular Volume 91.2 fL (81-99); Mean Platelet Vol. 9.9 fl (6.2-12.0); Monocyte# 0.61 X10^3/uL; Monocyte% 8.1 % (0-10); NRBC Flagged by Analyzer 0 % (0-5); Neutrophil % 78.6 % (47-70); Platelet Count 197 K/mm3 (150-450); RBC Distribution Width CV 13.3 % (11.6-14.6); RBC Distribution Width SD 43.1 fl (35.1-43.9); Red Blood Count 3.39 M/mm3 (4.2-5.4); White Blood Count 7.5 K/mm3 (4.4-11.0)
== END 2021-11-04 23:59 | disposition home or self-care (01) ==
LOC: PAVLAB 15:26
PROVIDERS: Referring Provider Nurse Practitioner Women's Health; Visit Provider Nurse Practitioner Women's Health
DX: D64.9 Anemia, unspecified (principal)
CPT/HCPCS: 36415; 85025

== ENCOUNTER 2021-12-04 16:54 | Outpatient (CLI) | payer BC, SELFPAY | END 2021-12-04 23:59 | disposition home or self-care (01) | LOC: LABSPEC 16:54 | PROVIDERS: Referring Provider Obstetrics & Gynecology; Visit Provider Obstetrics & Gynecology | DX: Z34.80 Encounter for supervision of other normal pregnancy, unspecified trimester (principal) | CPT/HCPCS: 87077; 87081; 87186 ==

== ENCOUNTER 2022-01-04 14:50 | Inpatient (IN) | payer BC, SELFPAY ==
[2022-01-04] VITALS (13 sets, daily range): BP systolic 104–130; BP diastolic 55–72; PULSE 71–89; RESP 16; TEMP 36.4–36.8; BMI 22.8
[2022-01-04] MEDS: Lactated Ringers 1,000 ML 50 ML IV (15:10)
[2022-01-04 15:45] LABS: Absolute Lymphocyte Count 1.84 X10^3/uL (0.83-4.51); Absolute Neutrophil Count 7.3 X10^3/uL (2.0-7.7); Basophil# 0.02 X10^3/uL; Basophil% 0.2 % (0-1); Eosinophil# 0.04 X10^3/uL; Eosinophils% 0.4 % (0-5); Hematocrit 36.7 % (37-47); Hemoglobin 12.3 g/dL (12.0-15.0); Lymphocyte # 1.84 X10^3/ul (0.83-4.51); Lymphocyte % 18.9 % (19-41); Mean Corp Hgb Conc 33.5 g/dL (32-36); Mean Corpuscular Hgb 29.6 pg (27.0-32.0); Mean Corpuscular Volume 88.2 fL (81-99); Mean Platelet Vol. 11.1 fl (6.2-12.0); Monocyte# 0.53 X10^3/uL; Monocyte% 5.4 % (0-10); NRBC Flagged by Analyzer 0 % (0-5); Neutrophil # 7.28 X10^3/uL (2.7-7.7); Neutrophil % 74.7 % (47-70); Platelet Count 231 K/mm3 (150-450); RBC Distribution Width CV 14.1 % (11.6-14.6); RBC Distribution Width SD 45.4 fl (35.1-43.9); Red Blood Count 4.16 M/mm3 (4.2-5.4); White Blood Count 9.8 K/mm3 (4.4-11.0)
--- NOTE | 2022-01-04 16:41 | HP.PCM.OB_ITS ---
HPI - General General Date of Admission: 01/04/22 HPI Narrative OSVALDO LAZO, is a 26 y/o @ 41 weeks 1 day F who presents to L&D with painful contractions. She was 3 cm dilated upon arrival at 1430 by 1600 she was 7 cm dilated. She is GBS positive. Maternal Data Information CALEB Calculator Estimated Delivery Date Method Current WG Current Estimate 12/27/21 LMP (Certain) 41w 1d PFSH PFSH Medical History Anemia Refuses tetanus, diphtheria, and acellular pertussis (Tdap) vaccination Home Medications multivit [id number] 1-dha 1 cap PO DAILY 05/23/19 [History Last Taken 10/05/19 09:00 1 capsule] Allergy/AdvReac Type Severity Reaction Status Date / Time No Known Allergies Allergy Verified 12/31/21 15:48 Social History adopted: No household members: family housing: house number of children: 1 current occupational status: employed current occupation: [employer] pets and animals: Yes Smoking Status: Never smoker second hand exposure: No alcohol intake: current details: social- not while substance use type: does not use seatbelt use: always do you feel safe at home: Yes additional social history: - Dc History 2 Elective abortions Hx Para 1 Spontaneous abortions Hx # Term Pregnancies Ectopic pregnancies Hx # Pregnancies Multiple births # of living children 1 Past Pregnancies Del. Date Name GA/Weeks Outcome Route Bth Weight Gen [facility] 10[facility]/19 [place] 41 live - full term 7lbs 3oz Male 5 hours l ocal [facility] Pierce Irwin Delivery Date: 10/05/19 1st degree vaginal tear; moderate meconium Areli Skelton Visit Details Expected Delivery Route/Plan Labor Preferences- labor support person: jacqueline Irwin labor intervention preferences: minimal intervention, hydrotherapy, IA, IV lock, diffuser. okay with touch and speaking guidance, withhold pitocin if able unless needed pain management options preferred: minimal intervention. cut cord/dad catch: cord only : yes PP control planned: discussed discussed possible routes of delivery and associated risks: [] special requests: [] Plans Covid status: nonimmune counseled regarding risk of covid in vs vaccination and declined vaccination Flu vaccine: declined Tdap vaccine: declines Rhogam: na LARC form signed: yes movement and labor precautions reviewed. Problem list reviewed and updated with the most current plan of care details and appropriate orders placed. Relevant counseling for the gestational age provided. Continue routine care and follow up unless otherwise noted in visit notes/problem list details OB Flowsheet Initial Weight: 130 lb Date -?-?-?-?-?-?-?-?-?-?-?-?- EGA Weight BP Urine Prot -?-?-?-?-?-?-?-?-?-?-?-?- Glucose FHR FuHt Pres Dilation -?-?-?-?-?-?-?-?-?-?-?-?- Effaced St Visit Note 05/27/21 -?-?-?-?-?-?-?-?-?-?-?-?- 9w 3d 130 lb (+0 oz) 110/72 -?-?-?-?-?-?-?-?-?-?-?-?- 180 -?-?-?-?-?-?-?-?-?-?-?-?- GP - CRL 26mm co nsistent with LMP 06/26/21 -?-?-?-?-?-?-?-?-?-?-?-?- 13w 5d 138 lb 2 oz (+8 lb 2 oz) 110/80 Negative -?-?-?-?-?-?-?-?-?-?-?-?- Negative 160 -?-?-?-?-?-?-?-?-?-?-?-?- SM- no vb crampi ng 07/22/21 -?-?-?-?-?-?-?-?-?-?-?-?- 17w 3d 143 lb (+13 lb) 118/60 Negative -?-?-?-?-?-?-?-?-?-?-?-?- Negative 151 -?-?-?-?-?-?-?-?-?-?-?-?- -No VB, LOF. P RR labs. MFM US 08/0108/19/21 -?-?-?-?-?-?-?-?-?-?-?-?- 21w 3d 146 lb 4 oz (+16 lb 4 oz) 104/80 Negative -?-?-?-?-?-?-?-?-?-?-?-?- Negative 134 20 -?-?-?-?-?-?-?-?-?-?-?-?- JV- no lof, vagi nal bleeding, or dec fm. echogenic focus in heart. Normal NIPT. 09/16/21 -?-?-?-?-?-?-?-?-?-?-?-?- 25w 3d 150 lb 2 oz (+20 lb 2 oz) 110/68 Negative -?-?-?-?-?-?-?-?-?-?-?-?- Negative 135 26 -?-?-?-?-?-?-?-?-?-?-?-?- SM- no vb lof go od fm n oreuglar ctx cbc gct 10/07/21 -?-?-?-?-?-?-?-?-?-?-?-?- 28w 3d 151 lb 4 oz (+21 lb 4 oz) 114/70 Negative -?-?-?-?-?-?-?-?-?-?-?-?- Negative 140 29 -?-?-?-?-?-?-?-?-?-?-?-?- JV- no lof , vag inal bleeding, or dec fm. no complaints. declines tdap 10/21/21 -?-?-?-?-?-?-?-?-?-?-?-?- 30w 3d 153 lb 6 oz (+23 lb 6 oz) 100/60 Trace -?-?-?-?-?-?-?-?-?-?-?-?- Negative 146 30 -?-?-?-?-?-?-?-?-?-?-?-?- -No Vb, LOF. G ood FM. Larc. 11/04/21 -?-?-?-?-?-?-?-?-?-?-?-?- 32w 3d 154 lb (+24 lb) 102/66 Negative -?-?-?-?-?-?-?-?-?-?-?-?- Negative 140 32 -?-?-?-?-?-?-?-?-?-?-?-?- Sm- no vb lof go od fm no regular ctx. discussed labor preferences. 11/18/21 -?-?-?-?-?-?-?-?-?-?-?-?- 34w 3d 152 lb (+22 lb) 100/82 Negative -?-?-?-?-?-?-?-?-?-?-?-?- Negative 140 34 -?-?-?-?-?-?-?-?-?-?-?-?- SM- no vb lof go od fm no regular ctx 12/04/21 -?-?-?-?-?-?-?-?-?-?-?-?- 36w 5d 155 lb 8 oz (+25 lb 8 oz) 98/58 Negative -?-?-?-?-?-?-?-?-?-?-?-?- Negative 145 35 1 -?-?-?-?-?-?-?-?-?-?-?-?- 70 -2 JV- gbs co llected. no complaints. labor precautions discussed. 12/12/21 -?-?-?-?-?-?-?-?-?-?-?-?- 37w 6d 152 lb (+22 lb) 120/62 Negative -?-?-?-?-?-?-?-?-?-?-?-?- Negative 155 37 Cephalic -?-?-?-?-?-?-?-?-?-?-?-?- sm- NO VB LOF GO OD FM NO REULAR CTX 12/19/21 -?-?-?-?-?-?-?-?-?-?-?-?- 38w 6d 156 lb (+26 lb) 112/60 Negative -?-?-?-?-?-?-?-?-?-?-?-?- Negative 135 38 Cephalic 1 -?-?-?-?-?-?-?-?-?-?-?-?- 60 -2 Sm- no vb lof good fm no regular ctx 12/24/21 -?-?-?-?-?-?-?-?-?-?-?-?- 39w 4d 157 lb 4 oz (+27 lb 4 oz) 100/70 Negative -?-?-?-?-?-?-?-?-?-?-?-?- Negative 145 37 Cephalic 1 -?-?-?-?-?-?-?-?-?-?-?-?- 80 -1 JV- labor precautions discussed. no lof, vaginal bleeding, or dec fm. 12/31/21 -?-?-?-?-?-?-?-?-?-?-?-?- 40w 4d 156 lb 2 oz (+26 lb 2 oz) 128/86 111/73 Negative -?-?-?-?-?-?-?-?-?-?-?-?- Negative 135 40 Cephalic -?-?-?-?-?-?-?-?-?-?-?-?- JV- pt declines IOL at this time. return either Thursday or Thursday for NST and exam as needed plan for 42 week IOL per patient request. 01/04/22 -?-?-?-?-?-?-?-?-?-?-?-?- 41w 1d 117/72 130/60 -?-?-?-?-?-?-?-?-?-?-?-?- -?-?-?-?-?-?-?-?-?-?-?-?- ROS Constitutional Constitutional: Denies change in weight, fatigue, fever(s), headache(s), poor appetite or weakness Eyes Eyes: Denies blurry vision, change in vision, seeing flashes or spots in vision ENT HEENT: Denies dizziness, headache(s), loss taste/smell or sore throat Cardiovascular Cardiovascular: Denies chest pain, dizziness, dyspnea, irregular heart rhythm, leg edema, palpitations, rapid heart rate or vomiting Respiratory/Chest Respiratory/Chest: Denies chest tightness, cough, dyspnea or breast pain Gastrointestinal Gastrointestinal: Denies abdominal pain, anorexia, constipation, cramping, diarrhea, hemorrhoids, vomiting or weight changes Genitourinary Genitourinary: Denies dysuria, flank pain, genital lesions, genital pain, urinary frequency or urinary urgency Musculoskeletal Musculoskeletal: Denies back pain, difficulty walking, joint pain, limited range of motion, muscle cramps or numbness Integumentary Integumentary: Denies lesions or unusual bruising Neurologic Neurologic: Denies abnormal movements, abnormal speech, dizziness, numbness, seizure-like activity or syncope Psychiatric Psychiatric: Denies anxiety, behavioral changes, change in appetite, change in libido, cognitive impairment, confusion, depression, difficulty concentrating, hallucinations or suicidal thoughts Endocrine Endocrinology: Denies excessive sweating, polydipsia or polyuria Hematologic/Lymphatic Hematologic/Lymphatic: Denies easy bleeding, easy bruising or lymphadenopathy Allergic/Immunologic Allergic/Immunologic: Denies itchy eyes, lip swelling, seasonal rhinorrhea, rhinitis, throat swelling, tongue swelling, eczemia, wheezing or asthma Vital Signs Vital Signs Vital Signs: 01/04/22 15:18 01/04/22 15:19 01/04/22 16:39 Temperature 98.2 F Pulse Rate 80 85 Blood Pressure 117/72 130/60 H BP Systolic 117 130 BP Diastolic 72 60 Physical Exam Const alert, oriented x3, no apparent distress and healthy appearing General Appearance: cooperative; Negative for anxious HEENT normocephalic Face and Sinus: normal facial exam Eyes EOMs intact bilaterally and no scleral icterus General Eye: normal appearance of both eyes Neck full ROM and supple Lymph Lymphatic: no lymphadenopathy noted Chest Chest: abnormal inspection of the chest Resp normal respiratory effort Effort and Inspection: able to speak in complete sentences Cardio regular rate GI soft to palpation and non-tender Inspection: gravid Palpation: soft; Negative for tender external exam normal Back/Spine no CVA tenderness Extremity normal to inspection, full ROM and no clubbing, cyanosis or edema General Extremity: Negative for calf tenderness or edema Skin Lesions: no lesions Rashes: no rashes Psych mental status grossly normal Labs Labs Labs: Blood Type A POSITIVE Antibody Screen NEGATIVE Hct 36.7 % (37-47) L Hgb 12.3 g/dL (12.0-15.0) Syphilis Total Ab Non-reactive Rubella IgG Antibody Reactive (Nonreactive) Hep Bs Antigen Non-Reactive (Nonreactive) Chlamydia DNA ([place]) Negative (Negative) Neisseria gonorrhoeae DNA ([place]) Negative (Negative) HIV 1&2 Antibody Non-Reactive (Nonreactive) Glucose 1 Hr 50 gm 94 mg/dL (70-140) Rhogam given: No Assessment & Plan (1) Positive GBS test: COMMENT: PCN in labor (2) Anemia: QUALIFIERS: Anemia type: iron deficiency Iron deficiency anemia type: other iron deficiency Qualified Code(s): D50.8 - Other iron deficiency anemias COMMENT: add Fe supplement; CBC ordered (3) Echogenic intracardiac focus of fetus on ultrasound: COMMENT: Noted on Anatomy US-NIPT- low risk (4) Supervision of other normal : COMMENT: PRR CALEB: 12/27/21 Boy (surprise) PC: Nathan Spouse: Dc (5) : QUALIFIERS: Weeks of gestation: 40 weeks Qualified Code(s): Z3A.40 - 40 weeks gestation of COMMENT: Declines carrier, and NTD. Anatomy overall normal except intracardiac echogenic focus PLAN: Patient presents IAL, plan expectant management for , pitocin/AROM PRN if needed. Pain management: tub for pain only. GBS positive plan IV PCN. Management of any complications: none I have reviewed the [facility] and made any clinically relevant updates.
--- NOTE | 2022-01-04 16:43 | EX.PCM.OBRPT ---
Maternal Data Information CALEB Calculator Estimated Delivery Date Method Current Current Estimate 12/27/21 LMP (Certain) 41w 1d Vaginal Delivery Maternal Presentation Maternal Presentation: Active Labor Operative Information Date of Procedure: 01/04/22 Pre-Operative Diagnosis: @ 41 weeks 1 days in active labor Post-Operative Diagnosis: @ 41 weeks 1 days in active labor Type of Anesthesia: None Estimated Blood Loss: 50cc Findings Description of Procedure: Patient began pushing and delivered the head in the VIOLETTE presentation. The head was delivered atraumatically and a tight nuchal cord ?2 was identified and the was delivering through it. The anterior and posterior shoulders delivered without complication followed by the rest of the and the infant was placed on the maternal abdomen. Delayed cord clamping was employed for approximately 60 seconds. Cord was clamped and cut and gentle traction was applied to the cord and the placenta delivered spontaneously immediately following it was noted to be intact with three-vessel cord. The perineum and vagina were inspected and noted to have no laceration. EBL was 50cc. Patient and infant tolerated delivery well. Presentation: Vertex Amniotic Fluid Description: Moderate meconium Placental Delivery Description: Spontaneous Placenta Disposition: [facility] Cord Vessel Description: 3 Vessels Cord Entanglement: Around neck x 2, tight Nuchal Cord Compression: Without compression A Gender: Male (1 minute): 9 (5 minute): 9 Delayed Cord Clamping: Yes Post Vaginal Delivery Medications Given After Delivery: IV Pitocin Episiotomy Description: None Laceration: None Complication Complications: None
--- NOTE | 2022-01-04 16:45 | PCM.DC ---
Discharge Instructions Diet Discharge Diet: No restrictions Activity Discharge Activity: Return to Normal Activity, May Not Drive (while taking narcotic pain medications.) and May Shower May resume sexual activity in: 4-6 weeks Dressing / Incision Call your doctor if your incision/area has: Continuous Slow Oozing, Sudden Increased Bleeding, Increased Pain/ Swelling, Increased Redness and Foul Smelling Discharge Follow Up Care Please Follow Up With: Echo Art DO When: Call [phone] to make an appointment with your doctor in 6 weeks. If you had elevated blood pressure or 4th degree laceration, you will need to be seen in 2 weeks. Test Results: Test results from this visit will be discussed in further detail at your follow-up appointment, if applicable. Discharge Plan Admission Admit Date/Time: 01/04/22 14:50 Primary Reason for Your Visit: vaginal delivery Attending Provider: Echo Art Primary Care Provider: Care Physician,No Primary Discharge Orders/Prescriptions Prescriptions: New ibuprofen 800 mg tablet 800 mg PO Q8H PRN (Reason: pain) 7 Days Qty: 30 RF: 0 Continued multivit [id number] 1-dha 1 EACH capsule 1 cap PO DAILY RF: 0 Referrals / Follow Up: Care Physician,No Primary [Primary Care Provider] - Disposition Disposition (needs filled in before D/C Order can be placed): Home, Self Care
[2022-01-04] MEDS: Oxytocin 30 units/NS 500 ml 30 UNITS/500 ML IV.SOLN 334 UNITS IV (18:13)
[2022-01-05] VITALS (14 sets, daily range): BP systolic 110–130; BP diastolic 64–83; PULSE 71–84; RESP 12–16; TEMP 36.6–36.9
--- NOTE | 2022-01-05 10:46 | PCM.PN.OB ---
Subjective Subjective Patient doing well without complaints. Tolerating PO. Ambulating and voiding without difficulty. Feeding well. Denies chest pain, shortness of breath, calf pain/swelling, fevers, chills, lightheadedness. Objective Data Objective Data Vital Signs: Vital Signs Temp Pulse Resp BP 98.2 F 84 12 130/83 H 01/05/22 07:34 01/05/22 07:34 01/05/22 07:34 01/05/22 07:34 Oxygen Delivery Method Room Air Weight: 150 lb Body Mass Index (BMI) 22.8 Intake & Output: Intake and Output for Last 24 Hours 01/03/22 01/04/22 01/05/22 23:59 23:59 23:59 Intake Total 758.30 / 758.30 Output Total 850 / 850 Balance 758.30 / 758.30 -850 / -850 Lab / Micro Data Result Diagrams: 01/04/22 15:10 Labs: Laboratory Results - last 24 hr 01/04/22 15:10: WBC 9.8, RBC 4.16 L, Hgb 12.3, Hct 36.7 L, MCV 88.2, MCH 29.6, MCHC 33.5, RDW Std Deviation 45.4 H, RDW Coeff of Arielle 14.1, Plt Count 231, MPV 11.1, Immature Gran % (Auto) 0.400, Neut % (Auto) 74.7 H, Lymph % (Auto) 18.9 L, [place] % (Auto) 5.4, Eos % (Auto) 0.4, Baso % (Auto) 0.2, Absolute Neuts (auto) 7.3, Absolute Lymphs (auto) 1.84, Nucleated RBC % 0 01/04/22 15:10: Blood Type A POSITIVE, Antibody Screen NEGATIVE Micro: Microbiology 01/04/22 15:30 Nasal Secretion SARS-CoV-2 Antigen (Rapid) - Final ROS Constitutional Constitutional: Denies chills, fatigue, fever(s), poor appetite or weakness Eyes Eyes: Denies blurry vision, change in vision, seeing flashes or spots in vision ENT HEENT: Denies dizziness, headache(s), loss taste/smell or sore throat Cardiovascular Cardiovascular: Denies chest pain, dizziness, dyspnea, irregular heart rhythm, palpitations or rapid heart rate Respiratory/Chest Respiratory/Chest: Denies chest tightness, cough, dyspnea or breast pain Gastrointestinal Gastrointestinal: Denies abdominal pain, constipation or vomiting Genitourinary Genitourinary: Denies dysuria or flank pain Musculoskeletal Musculoskeletal: Denies difficulty walking, joint pain, limited range of motion or numbness Neurologic Neurologic: Denies abnormal movements, abnormal speech, dizziness, numbness, seizure-like activity or syncope Psychiatric Psychiatric: Denies anxiety, behavioral changes, change in appetite, confusion, depression or suicidal thoughts Physical Exam Const alert, oriented x3 and no apparent distress General Appearance: cooperative and comfortable Resp normal respiratory effort Cardio regular rate GI normal to inspection, nondistended, normoactive bowel sounds GI Narrative: uterus is firm below umbilicus Palpation: soft Back/Spine no CVA tenderness and thoraco-lumbar ROM normal Extremity normal to inspection, no clubbing, cyanosis or edema, no calf tenderness and no pedal edema Psych mental status grossly normal, thought process normal, cooperative, affect normal, speech normal, activity/motor behavior normal, denies homicidal ideation and denies suicidal ideation Assessment & Plan (1) Status post vaginal delivery: COMMENT: Enzo Stover 01/04/22- JV PLAN: s/p PPD # 1 1. routine post delivery care 2. breast feeding- support given 3. rh positive 4. rubella immune 5. patient was GBS positive and did not recieve 2 doses of pcn prior to delivery. Her baby will not be cleared for discharge until after 5 am tomorrow. Pt also only got 45 min of sleep over night and needs assistance today.
[2022-01-06 01:15] VITALS: BP 109/72; PULSE 68; TEMP 36.6
[2022-01-06 01:26] VITALS: BP 109/72; PULSE 68; RESP 16; TEMP 36.6
--- NOTE | 2022-01-06 08:16 | PCM.PN.OB ---
Subjective Subjective Patient doing well without complaints. Tolerating PO. Ambulating and voiding without difficulty. Feeding well. Denies chest pain, shortness of breath, calf pain/swelling, fevers, chills, lightheadedness. Objective Data Objective Data Vital Signs: Vital Signs Temp Pulse Resp BP 97.9 F 68 16 109/72 01/06/22 01:26 01/06/22 01:26 01/06/22 01:26 01/06/22 01:26 Oxygen Delivery Method Room Air Weight: 150 lb Body Mass Index (BMI) 22.8 Intake & Output: Intake and Output for Last 24 Hours 01/04/22 01/05/22 01/06/22 23:59 23:59 23:59 Intake Total 758.30 / 758.30 Output Total 850 / 850 Balance 758.30 / 758.30 -850 / -850 Lab / Micro Data Result Diagrams: 01/04/22 15:10 Micro: Microbiology 01/04/22 15:30 Nasal Secretion SARS-CoV-2 Antigen (Rapid) - Final Physical Exam Const alert and oriented x3 HEENT normocephalic Eyes PERRL Neck full ROM Resp normal respiratory effort GI soft to palpation GI Narrative: FF below U Assessment & Plan (1) Status post vaginal delivery: COMMENT: Baby boy Jolanta LORI 01/04/22- DUANE PLAN: s/p PPD # 2 1. routine post delivery care 2. breast feeding- support given 3. rh positive 4. rubella immune 5. home today
[2022-01-06 08:37] VITALS: BP 112/67; PULSE 96; RESP 16; TEMP 36.9; O2SAT 96
[2022-01-06 08:44] VITALS: RESP 16
[2022-01-06] MEDS: Acetaminophen 500 MG Tablet 1000 MG PO (08:47)
== END 2022-01-06 10:08 | disposition home or self-care (01) | DRG 807 ==
LOC: WPOUT 15:01 → WP 15:01
PROVIDERS: Admitting Provider Obstetrics & Gynecology; Visit Provider Obstetrics & Gynecology
DX: O99.824 Streptococcus B carrier state complicating childbirth (principal); Z37.0 Single live birth; D50.9 Iron deficiency anemia, unspecified; O48.0 Post-term pregnancy; O77.0 Labor and delivery complicated by meconium in amniotic fluid; Z20.822 Contact with and (suspected) exposure to COVID-19; O69.1XX0 Labor and delivery complicated by cord around neck, with compression, not applicable or unspecified; O99.02 Anemia complicating childbirth; Z3A.41 41 weeks gestation of pregnancy
CPT/HCPCS: 59025; 59050; 85025; 86850; 86900; 86901; 87426; 99218; J7120; G0378

== ENCOUNTER → 2022-02-20 | Outpatient (CLI) | payer BC, SELFPAY ==
[2022-02-24 16:51] LABS: HPV Reflexed? NOT INDICATED
== END | disposition home or self-care (01) ==
LOC: LABSPEC 06:35
PROVIDERS: Referring Provider Obstetrics & Gynecology; Visit Provider Obstetrics & Gynecology
DX: Z12.4 Encounter for screening for malignant neoplasm of cervix (principal)
CPT/HCPCS: 88175; G0145

== ENCOUNTER → 2024-04-29 | Outpatient (CLI) | payer BC, SELFPAY ==
[2024-05-02 22:07] LABS: Chlamydia By Nucleic Acid AMP Negative (Negative); Gonococcus By Nucleic Acid AMP Negative (Negative)
== END | disposition home or self-care (01) ==
LOC: LABSPEC 15:39
PROVIDERS: Referring Provider Obstetrics & Gynecology; Visit Provider Obstetrics & Gynecology
DX: Z34.90 Encounter for supervision of normal pregnancy, unspecified, unspecified trimester (principal)
CPT/HCPCS: 87086; 87491; 87591

== ENCOUNTER → 2024-06-01 | Outpatient (CLI) | payer BC, SELFPAY ==
[2024-06-01 17:12] LABS: Absolute Lymphocyte Count 1.56 X10^3/uL (0.83-4.51); Absolute Neutrophil Count 4.2 X10^3/uL (2.0-7.7); Basophil# 0.01 X10^3/uL; Basophil% 0.2 % (0-1); Eosinophil# 0.11 X10^3/uL; Eosinophils% 1.7 % (0-5); Hematocrit 32.6 % (37-47); Hemoglobin 10.7 g/dL (12.0-15.0); Lymphocyte # 1.56 X10^3/ul (0.83-4.51); Lymphocyte % 24.8 % (19-41); Mean Corp Hgb Conc 32.8 g/dL (32-36); Mean Corpuscular Hgb 29.5 pg (27.0-32.0); Mean Corpuscular Volume 89.8 fL (81-99); Mean Platelet Vol. 9.8 fl (6.2-12.0); Monocyte# 0.45 X10^3/uL; Monocyte% 7.1 % (0-10); NRBC Flagged by Analyzer 0 % (0-5); Neutrophil # 4.15 X10^3/uL (2.7-7.7); Neutrophil % 65.9 % (47-70); Platelet Count 214 K/mm3 (150-450); RBC Distribution Width CV 13.2 % (11.6-14.6); RBC Distribution Width SD 43.2 fl (35.1-43.9); Red Blood Count 3.63 M/mm3 (4.2-5.4); White Blood Count 6.3 K/mm3 (4.4-11.0)
[2024-06-01 18:15] LABS: HIV - WCH Non-Reactive (Nonreactive); Hepatitis B Surface Antigen Non-Reactive (Nonreactive); Hepatitis C Antibody Non-Reactive (Nonreactive); Rubella IgG Reactive (Nonreactive); Syphilis Antibodies Non-reactive
== END | disposition home or self-care (01) ==
LOC: LAB 16:16
PROVIDERS: Referring Provider Obstetrics & Gynecology; Visit Provider Obstetrics & Gynecology
DX: Z34.90 Encounter for supervision of normal pregnancy, unspecified, unspecified trimester (principal); Z3A.00 Weeks of gestation of pregnancy not specified
CPT/HCPCS: 36415; 85025; 86703; 86762; 86780; 86803; 86850; 86900; 86901; 87340

== ENCOUNTER → 2024-08-23 | Outpatient (CLI) | payer BC, SELFPAY ==
[2024-08-23 15:50] LABS: Glucose Challenge Gest 1H 50g 99 mg/dL (70-140)
== END | disposition home or self-care (01) ==
LOC: BWCLAB 13:21
PROVIDERS: Advanced Practice Midwife; Referring Provider Nurse Practitioner Women's Health; Visit Provider Nurse Practitioner Women's Health
DX: Z34.82 Encounter for supervision of other normal pregnancy, second trimester (principal)
CPT/HCPCS: 36415; 82950

== ENCOUNTER → 2024-09-07 | Outpatient (CLI) | payer BC, SELFPAY ==
[2024-09-07 16:40] LABS: Absolute Lymphocyte Count 1.46 X10^3/uL (0.83-4.51); Absolute Neutrophil Count 5.4 X10^3/uL (2.0-7.7); Basophil# 0.02 X10^3/uL; Basophil% 0.3 % (0-1); Eosinophil# 0.05 X10^3/uL; Eosinophils% 0.7 % (0-5); Hematocrit 34.7 % (37-47); Hemoglobin 11.7 g/dL (12.0-15.0); Lymphocyte # 1.46 X10^3/ul (0.83-4.51); Lymphocyte % 19.5 % (19-41); Mean Corp Hgb Conc 33.7 g/dL (32-36); Mean Corpuscular Hgb 31.2 pg (27.0-32.0); Mean Corpuscular Volume 92.5 fL (81-99); Mean Platelet Vol. 9.7 fl (6.2-12.0); Monocyte# 0.52 X10^3/uL; Monocyte% 6.9 % (0-10); NRBC Flagged by Analyzer 0 % (0-5); Neutrophil # 5.41 X10^3/uL (2.7-7.7); Neutrophil % 72.2 % (47-70); Platelet Count 201 K/mm3 (150-450); RBC Distribution Width CV 12.9 % (11.6-14.6); RBC Distribution Width SD 43.3 fl (35.1-43.9); Red Blood Count 3.75 M/mm3 (4.2-5.4); White Blood Count 7.5 K/mm3 (4.4-11.0)
[2024-09-07 17:22] LABS: HIV - WCH Non-Reactive (Nonreactive); Syphilis Antibodies Non-reactive
== END | disposition home or self-care (01) ==
LOC: BWCLAB 15:48
PROVIDERS: Referring Provider Obstetrics & Gynecology; Visit Provider Obstetrics & Gynecology
DX: Z34.82 Encounter for supervision of other normal pregnancy, second trimester (principal)
CPT/HCPCS: 36415; 85025; 86703; 86780

== ENCOUNTER → 2024-10-28 | Outpatient (CLI) | payer SELFPAY | END | disposition home or self-care (01) | PROVIDERS: Referring Provider Registered Nurse; Visit Provider Registered Nurse | DX: Z34.83 Encounter for supervision of other normal pregnancy, third trimester (principal) | CPT/HCPCS: 87081 ==

== ENCOUNTER 2024-11-28 13:09 | Inpatient (IN) | payer BC, SELFPAY ==
[2024-11-28] VITALS (14 sets, daily range): BP systolic 101–129; BP diastolic 60–76; PULSE 96–127; RESP 14–20; TEMP 36.6–37.4; O2SAT 97–99; BMI 24.7
[2024-11-28] MEDS: Lactated Ringers 1,000 ML 50 ML IV (13:45)
[2024-11-28 14:00] LABS: Absolute Lymphocyte Count 1.24 X10^3/uL (0.83-4.51); Absolute Neutrophil Count 7.4 X10^3/uL (2.0-7.7); Basophil# 0.03 X10^3/uL; Basophil% 0.3 % (0-1); Eosinophil# 0.07 X10^3/uL; Eosinophils% 0.8 % (0-5); Hematocrit 37.7 % (37-47); Hemoglobin 12.9 g/dL (12.0-15.0); Lymphocyte # 1.24 X10^3/ul (0.83-4.51); Lymphocyte % 13.4 % (19-41); Mean Corp Hgb Conc 34.2 g/dL (32-36); Mean Corpuscular Hgb 31.4 pg (27.0-32.0); Mean Corpuscular Volume 91.7 fL (81-99); Mean Platelet Vol. 10.3 fl (6.2-12.0); Monocyte# 0.47 X10^3/uL; Monocyte% 5.1 % (0-10); NRBC Flagged by Analyzer 0 % (0-5); Neutrophil # 7.37 X10^3/uL (2.7-7.7); Platelet Count 202 K/mm3 (150-450); RBC Distribution Width CV 13.2 % (11.6-14.6); RBC Distribution Width SD 44.1 fl (35.1-43.9); Red Blood Count 4.11 M/mm3 (4.2-5.4); White Blood Count 9.2 K/mm3 (4.4-11.0)
--- NOTE | 2024-11-28 14:35 | HP.PCM.OB_ITS ---
HPI - General General Date of Admission: 11/28/24 Date of Service: 11/28/24 HPI Narrative OSVALDO LAZO, is a 29 F at 41.2 weeks who presents to unit for augmentation of labor after being seen in the office. NST overall reactive, possible variable noted-broken on tracing. Membrane sweep was done in the office Maternal Data Information CALEB Calculator Estimated Delivery Date Method Current WG Current Estimate 11/19/24 LMP (Certain) 41w 2d Other Estimates 11/14/24 Ultrasound #1 42w 0d Final CALEB: 11/19/24 Final CALEB Source: US >20 weeks Gestational age: 41.2 PFSH PFS Medical History (Updated 11/28/24 @ 14:39 by Suzette Chavez CNM) Seasonal allergies Refuses tetanus, diphtheria, and acellular pertussis (Tdap) vaccination Anemia Home Medications ?Medication ?Instructions ?Recorded ?Last Taken ?Type PNV 153-FA 400 mcg-om3 35 mg-dha 1 tab PO DAILY pregan cy 04/26/24 11/27/24 History 25 mg-epa 5 mg-fish oil chew tablet Allergy/AdvReac Type Severity Reaction Status Date / Time No Known Allergies Allergy Verified 11/28/24 13:52 Surgical History [place] teeth extracted Social History adopted: No household members: family housing: house number of children: 2 current occupational status: employed 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 pets and animals: Yes history of recent travel: No sexually active: Yes Smoking Status: Never smoker second hand exposure: No alcohol intake: current details: social- not while substance use type: does not use well-balanced diet: daily or most days caffeine: No eating out: rarely or never during the past year weight has: remained stable what type of physical activity do you participate in: none dell/zoroastrian: Latter Day seatbelt use: always do you feel safe at home: Yes additional social history: - 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 Date Name GA/Weeks Outcome Route Bth Weight Gen Labor Lgth Anesthesia Del Locatn Provider FOB 01/08/20 Nathan 41 live - full term 7lbs 3oz Male 5 hours l ocal [facility] Pierce Irwin 01/05/22 Reiker 41 live - full term 7lbs 6oz Male no ne [facility] Radha Irwin Delivery Date: 10/05/19 Last Updated by: Areli Skelton 1st degree vaginal tear; moderate meconium Visit Details Expected Delivery Route/Plan Labor Preferences- CB/BF classes: no labor support person: kanchan irwin as jacqueline labor intervention preferences: pain management options preferred: minimal intervention cut cord/dad catch: cord : yes PP control planned: discussed discussed possible routes of delivery and associated risks: [] special requests: [] Plans Covid status: [] Flu vaccine: [] Tdap vaccine: [] Rhogam: [] LARC form signed: [] Problem list reviewed and updated with the most current plan of care details and appropriate orders placed. Relevant counseling for the gestational age provided. Continue routine care and follow up unless otherwise noted in visit notes/problem list details OB Flowsheet Initial Weight: Not Recorded Date -?-?-?-?-?-?-?-?-?-?-?-?- EGA Weight BP Urine Prot -?-?-?-?-?-?-?-?-?-?-?-?- Glucose FHR FuHt Pres Dilation -?-?-?-?-?-?-?-?-?-?-?-?- Effaced St Visit Note 04/29/24 -?-?-?-?-?-?-?-?-?-?-?-?- 10w 6d 133 lb 8 oz 104/67 -?-?-?-?-?-?-?-?-?-?-?-?- 170 -?-?-?-?-?-?-?-?-?--?-?-?- JV- CRL 42.8 con sistent with LMP. still having moderate nausea on zofran + phenergan. JV- CRL 42.8 consistent with LMP. still having moderate nausea on zofran + phenergan. Declines NIPT 06/01/24 -?-?-?-?-?-?-?-?-?-?-?-?- 15w 4d 134 lb 113/74 Negative -?-?-?-?-?-?-?-?-?-?-?-?- Negative 150 -?-?-?-?-?-?-?-?-?-?-?-?- SM- feeling bett er no vb cramping 06/29/24 -?-?-?-?-?-?-?-?-?-?-?-?- 19w 4d 138 lb 8 oz 112/72 Nega tive -?-?-?-?-?-?-?-?-?-?-?-?- Negative 147 -?-?-?-?-?-?-?-?-?-?-?-?- -NO VB. Some f lutters. Nausea resolved. Discussed anemia and adding FE 07/25/24 -?-?-?-?-?-?-?-?-?-?-?-?- 23w 2d 144 lb 111/66 Negative -?-?-?-?-?-?-?-?-?-?-?-?- Negative 143 23 -?-?-?-?-?-?-?-?-?-?-?-?- KW- no vb/lof/ct x. myron fm. discussed 28 week labs. desires Fresh test 08/23/24 -?-?-?-?-?-?-?-?-?-?-?-?- 27w 3d 151 lb 8 oz 110/62 Trac e -?-?-?-?-?-?-?-?-?-?-?-?- Negative 153 27 -?-?-?-?-?-?-?--?-?-?-?-?- MH-No VB, LOF. G mackenzie FM. Denies SOARES, vision changes. 28 wk labs pending. Enc increase fluids. 09/07/24 -?-?-?-?-?-?-?-?-?-?-?-?- 29w 4d 156 lb 4 oz 99/62 Nega tive -?-?-?-?-?-?-?-?-?-?-?-?- Negative 135 30 -?-?-?-?-?-?-?-?-?-?-?-?- JV- no lof, vagi nal bleeding, or cramping. no complaints. still needs rest of 3rd trimester labs. 09/19/24 -?-?-?-?-?-?-?-?-?-?-?-?- 31w 2d 156 lb 4 oz 87/56 Nega tive -?-?-?-?-?-?-?-?-?-?-?-?- Negative 150 32 -?-?-?-?-?-?-?-?-?-?-?-?- SM- no vb lof go od fm no regualr ctx 10/03/24 -?-?-?-?-?-?-?-?-?-?-?-?- 33w 2d 157 lb 104/65 Negative -?-?-?-?-?-?-?-?-?-?-?-?- Negative 130 33 -?-?-?-?-?-?-?-?-?-?-?-?- KW- no vb/lof/ct x. good fm. no concern 10/18/24 -?-?-?-?-?-?-?-?-?-?-?-?- 35w 3d 162 lb 6 oz 100/61 Nega tive -?-?-?-?-?-?-?-?-?-?-?-?- Negative 150 35 -?-?-?-?-?-?-?-?-?-?-?-?- MH-No VB, LOF, C TX. Good Fm. Doing well 10/28/24 -?-?-?-?-?-?-?-?-?-?-?-?- 36w 6d 163 lb 114/76 Negative -?-?-?-?-?-?-?-?-?-?-?-?- Negative 140 36 Cephalic -?-?-?-?-?-?-?-?-?-?-?-?- LC- no vb/ctx/lo f. good fm. no concerns. gbs today 11/04/24 -?-?-?-?-?-?-?-?-?-?-?-?- 37w 6d 164 lb 106/58 Negative -?-?-?-?-?-?-?-?-?-?-?-?- Negative 155 37 Cephalic -?-?-?-?-?-?-?-?-?-?-?-?- LC- no vb/ctx/lo f. good fm. gbs neg. declines ve today. 11/11/24 -?-?-?-?-?-?-?-?-?-?-?-?- 38w 6d 164 lb 8 oz 117/76 Nega tive -?-?-?-?-?-?-?-?-?-?-?-?- Negative 145 38 Cephalic 2 -?-?-?-?-?-?-?-?-?-?-?-?- 60 -2 KW- no vb/ lof/ctx. good fm. labor precautions 11/18/24 -?-?-?-?-?-?-?-?-?-?-?-?- 39w 6d 165 lb 115/59 Negative -?-?-?-?-?-?-?-?-?-?-?-?- Negative 130 40 Cephalic -?-?-?-?-?-?-?-?-?-?-?-?- KW- no vb/lof/ct x. good fm. declines SVE today will consider for next week. 11/21/24 -?-?-?-?-?-?-?-?-?-?-?-?- 40w 2d 166 lb 2 oz 122/73 Nega tive -?-?-?-?-?-?-?-?-?-?-?-?- Negative 122 39 Cephalic 3 -?-?-?-?-?-?-?-?-?-?-?-?- 70 -2 KW- no vb/ lof/ctx. good fm. Discussed 41 week IOL and would like to go past if appropriate KW- no vb/lof/ctx. good fm. Discussed 41 week IOL and would like to go past if appropriate. US ordered for thursday11/28/24 -?-?-?-?-?-?-?-?-?-?-?-?- 41w 2d 167 lb 6 oz 109/69 Nega tive -?-?-?-?-?-?-?-?-?-?-?-?- Negative 125 Cephalic 3.5 -?-?-?-?-?-?-?-?-?-?-?-?- 70 -2 KW- no vb/ lof. some irregualr CTX. NST for postdates-variable noted. sending to for IOL. NST FHR Rate Baby A Baseline: 135 Variability:: Moderate Accelerations:: 15 x 15 Decelerations:: None NST Reactive:: Yes FHR Category:: Category I Uterine Activity:: 2-3 minutes ROS Constitutional Constitutional: Denies change in weight, fatigue, fever(s), headache(s), poor appetite or weakness Eyes Eyes: Denies blurry vision, change in vision, floaters, seeing flashes or spots in vision ENT HEENT: Denies dizziness, headache(s), loss taste/smell or sore throat Cardiovascular Cardiovascular: Denies chest pain, dizziness, dyspnea, irregular heart rhythm, lightheadedness, palpitations or rapid heart rate Respiratory/Chest Respiratory/Chest: Denies change in mental status, chest tightness, cough, dyspnea or breast pain Gastrointestinal Gastrointestinal: Denies anorexia, chewing difficulty, constipation, diarrhea or weight changes Genitourinary Genitourinary: Denies difficulty urinating, dysuria, flank pain, genital pain, urinary frequency or urinary urgency Musculoskeletal Musculoskeletal: Denies back pain, difficulty walking, extremity pain, joint pain, muscle cramps or muscle weakness Integumentary Integumentary: Denies lesions or unusual bruising Neurologic Neurologic: Denies abnormal movements, abnormal speech, dizziness, numbness, seizure-like activity, syncope or weakness Psychiatric Psychiatric: Denies behavioral changes, change in appetite, confusion, depression, homicidal ideation, suicidal ideation or suicidal thoughts Endocrine Endocrinology: Denies excessive sweating, polydipsia or polyuria Hematologic/Lymphatic Hematologic/Lymphatic: Denies anemia Allergic/Immunologic Allergic/Immunologic: Denies itchy eyes, lip swelling, throat swelling, tongue swelling or wheezing Vital Signs Vital Signs Vital Signs: 11/28/24 13:30 11/28/24 13:30 11/28/24 13:30 Temperature Pulse Rate 122 H Respiratory Rate 16 Blood Pressure 111/76 BP Systolic 111 BP Diastolic 76 Pulse Ox 11/28/24 13:30 11/28/24 13:50 11/28/24 13:50 Temperature 99.0 F Pulse Rate 111 H Respiratory Rate Blood Pressure BP Systolic BP Diastolic Pulse Ox 99 Weight Weight: 168 lb Body Mass Index (BMI) 24.7 Physical Exam Const alert, oriented x3 and no apparent distress General Appearance: cooperative Orientation / Consciousness: awake HEENT normocephalic Neck full ROM Lymph Lymphatic: no lymphadenopathy noted Chest inspection of chest normal Resp normal respiratory effort and normal air movement Effort and Inspection: able to speak in complete sentences and symmetric chest movement GI soft to palpation and non-tender Inspection: gravid Palpation: soft; Negative for tender external exam normal Back/Spine normal to inspection Extremity normal to inspection and full ROM Skin no rashes or lesions noted Psych mental status grossly normal Appearance: grossly normal Speech: normal speech Labs Labs Labs: Blood Type A POSITIVE Antibody Screen NEGATIVE Hct 37.7 % (37-47) Hgb 12.9 g/dL (12.0-15.0) Syphilis Total Ab Non-reactive Rubella IgG Antibody Reactive (Nonreactive) Hep Bs Antigen Non-Reactive (Nonreactive) Hepatitis C Antibody Non-Reactive (Nonreactive) Chlamydia DNA (CONCHITA) Negative (Negative) N.gonorrhoeae DNA (CONCHITA) Negative (Negative) HIV 1&2 Antibody Non-Reactive (Nonreactive) Glucose 1 Hr 50 gm 99 mg/dL (70-140) Rhogam given: No Assessment & Plan (1) Active labor: PLAN: Patient presents IAL, plan expectant management for , pitocin/AROM PRN if needed. Pain management: plans no epidural. GBS neg. Management of any complications: none I have reviewed the [facility] and made any clinically relevant updates. Dr Hood aware of assessment, plan and admission. Agrees with above (2) Anemia in preg-unspec: QUALIFIERS: Trimester: second trimester Qualified Code(s): O99.012 - Anemia complicating , second trimester COMMENT: start FE (3) Supervision of normal : QUALIFIERS: Normal : other normal Trimester: third trimester Qualified Code(s): Z34.83 - Encounter for supervision of other normal , third trimester COMMENT: PRR, , CALEB 11/19/24, Boy PC Nathan, Thonyr Cd (4) : QUALIFIERS: Weeks of gestation: 41 weeks Qualified Code(s): O48.0 - Post-term ; Z3A.41 - 41 weeks gestation of COMMENT: Declines genetic & carrier testing, nl anatomy. Charges/Coding Multi Select Codes Urinary/Genital Urinary/Genital CPT Codes: No Charge
[2024-11-28 14:43] LABS: Syphilis Antibodies Nonreactive (Nonreactive)
--- NOTE | 2024-11-28 16:03 | PN_ITS ---
Progress Note Coping well with contractions current tracing: FHT: 145 Moderate variability reactive no decelerations category I tracing [place]: 2-3 minute Contractions Membranes:ruptured for clear fluid SVE:5/80/-2 A/P: Continue with position changes Epidural per anesthesia-if desired GBS neg Anticipate Dr Hood aware of above assessment and agrees with plan of care Assessment & Plan Assessment/Plan (1) Active labor: (2) Anemia in preg-unspec: QUALIFIERS: Trimester: second trimester Qualified Code(s): O99.012 - Anemia complicating , second trimester (3) Supervision of normal : QUALIFIERS: Normal : other normal Trimester: third trimester Qualified Code(s): Z34.83 - Encounter for supervision of other normal , third trimester (4) : QUALIFIERS: Weeks of gestation: 41 weeks Qualified Code(s): O48.0 - Post-term ; Z3A.41 - 41 weeks gestation of Multi Select Codes Urinary/Genital Urinary/Genital CPT Codes: No Charge
--- NOTE | 2024-11-28 17:31 | EX.PCM.OBVAG ---
Assessment & Plan (1) Vaginal delivery: COMMENT: KW 41.2 Boy (2) Active labor: (3) Anemia in preg-unspec: QUALIFIERS: Trimester: second trimester Qualified Code(s): O99.012 - Anemia complicating , second trimester COMMENT: start FE (4) Supervision of normal : QUALIFIERS: Normal : other normal Trimester: third trimester Qualified Code(s): Z34.83 - Encounter for supervision of other normal , third trimester COMMENT: PRR, , CALEB 11/19/24, Boy PC Thony Evansr Dc (5) : QUALIFIERS: Weeks of gestation: 41 weeks Qualified Code(s): O48.0 - Post-term ; Z3A.41 - 41 weeks gestation of COMMENT: Declines genetic & carrier testing, nl anatomy. Maternal Data Information CALEB Calculator Estimated Delivery Date Method Current WG Current Estimate 11/19/24 LMP (Certain) 41w 2d Other Estimates 11/14/24 Ultrasound #1 42w 0d Final CALEB: 11/19/24 Final CALEB Source: US >20 weeks Gestational age: 41.2 Vaginal Delivery Maternal Presentation Maternal Presentation: Active Labor Maternal Presentation: Presented to unit for active labor at 41.2 weeks Vaginal Delivery Information Procedure Performed: Spontaneous Vaginal Delivery Surgeon/Practitioner: Suzette Chavez Date of Procedure: 11/28/24 Pre-Procedure Diagnosis: see problem list Post-Procedure Diagnosis: same Type of anesthesia: None Estimated Blood Loss: 300 Time of Delivery: 17:25 Findings Description of procedure: Progressed well to 10cm dilated and made steady progress with effective maternal pushing. Delivered the head in VIOLETTE presentation. The head was delivered atraumatically and a tight nuchal cord was identified and infant delivered through. The anterior and posterior shoulders delivered without complication followed by the rest of the infant and the was placed on the maternal abdomen. Delayed cord clamping was employed for approximately 3 minutes. Cord was clamped and cut and gentle traction was applied to the cord and the placenta delivered spontaneously. Immediately following, it was noted to be intact with a 3 vessel cord. Uterine bleeding stable. The perineum and vagina were inspected and noted to have no laceration. EBL was 300. Patient and infant tolerated delivery well. Apgars 8/9. Dr Jones notified of vaginal delivery and orders reviewed. Physician agrees with current plan of care. Presentation: Vertex Amniotic Membrane Rupture Type: Artificial Amniotic Fluid Description: Clear Placental Delivery Description: Spontaneous Placenta Disposition: [facility] Specimen collected: No Cord Vessel Description: 3 Vessels Cord Entanglement: Around neck x 1, tight Infant A Gender: Male (1 minute): 8 (5 minute): 9 Delayed Cord Clamping: Yes Share Dairy Farmer head swamper: No Post Vaginal Deli Episiotomy Description: None Laceration: None Complication Complications: No Multi Select Codes Urinary/Genital Urinary/Genital CPT Codes: 80385 [facility]inal [facility]
--- NOTE | 2024-11-28 17:40 | DCINST_ITS ---
Discharge Instructions DC O2, CPAP, BIPAP needs Home O2 Discharge instructions: No Follow Up Care Test Results: Test results from this visit will be discussed in further detail at your follow- up appointment, if applicable. Discharge Plan Admission Admit Date/Time: 11/28/24 12:55 Attending Provider: Suzette Chavez Primary Care Provider: Care Physician,Judi Primary Discharge Orders/Prescriptions Prescriptions: No Action PNV no.[id number] 400 mcg-35 mg- 25 mg-5 mg tablet,chewable 1 tab PO DAILY Referrals / Follow Up: Care Physician,No Primary [Primary Care Provider] -
[2024-11-28] MEDS: Oxytocin 15 Units/NS 250ml 15 UNITS/250 ML IV.SOLN 83 UNITS IV (18:03)
[2024-11-28] MEDS: Acetaminophen 500 MG Tablet 1000 MG PO (22:34)
[2024-11-29 03:15] VITALS: BP 118/88; PULSE 99; RESP 16; TEMP 36.6
[2024-11-29] MEDS: Acetaminophen 500 MG Tablet 1000 MG PO ×3 (04:34→17:01)
--- NOTE | 2024-11-29 07:58 | PCM.PN.OB ---
Subjective Subjective Patient doing well without complaints. Tolerating PO. Ambulating and voiding without difficulty. Feeding well. Denies chest pain, shortness of breath, calf pain/swelling, fevers, chills, lightheadedness. Objective Data Objective Data Vital Signs: Vital Signs Temp Pulse Resp BP Pulse Ox O2 Del Method 97.9 F 99 16 118/88 H 99 Room Air 11/29/24 03:15 11/29/24 03:15 11/29/24 03:15 11/29/24 03:15 11/28/24 16:58 11/29/24 03:15 Oxygen Delivery Method Room Air Weight: 168 lb Body Mass Index (BMI) 24.7 Intake & Output: Intake and Output for Last 24 Hours 11/27/24 11/28/24 11/29/24 23:59 23:59 23:59 Intake Total 811.95 / 811.95 Output Total 750 / 750 Balance 61.95 / 61.95 Lab / Micro Data 11/28/24 13:45 Labs: Laboratory Results - last 24 hr 11/28/24 13:45: WBC 9.2, RBC 4.11 L, Hgb 12.9, Hct 37.7, MCV 91.7, MCH 31.4, MCHC 34.2, RDW Std Deviation 44.1 H, RDW Coeff of Arielle 13.2, Plt Count 202, MPV 10.3, Immature Gran % (Auto) 0.400, Neut % (Auto) 80.0 H, Lymph % (Auto) 13.4 L, Johnston % (Auto) 5.1, Eos % (Auto) 0.8, Baso % (Auto) 0.3, Absolute Neuts (auto) 7.4, Absolute Lymphs (auto) 1.24, Nucleated RBC % 0, Syphilis Total Ab Nonreactive, Blood Type A POSITIVE, Antibody Screen NEGATIVE Physical Exam Const alert and oriented x3 HEENT normocephalic Eyes PERRL Neck full ROM Resp normal respiratory effort GI soft to palpation GI Narrative: FF below U Assessment & Plan (1) Vaginal delivery: COMMENT: KW 41.2 Boy kael PLAN: Plan s/p PPD # 1 1. routine post delivery care 2. breast feeding- support given 3. rh positive 4. rubella immune
[2024-11-29 08:00] VITALS: BP 110/70; PULSE 77; RESP 14; TEMP 36.3
[2024-11-29] MEDS: Benzocaine/Lanolin/Aloe Vera 85 GM Spray 1 SPRAY TOPICAL (10:40)
[2024-11-29 12:00] VITALS: BP 106/58; PULSE 87; RESP 16; TEMP 36.9; O2SAT 98
[2024-11-29 17:14] VITALS: BP 113/74; PULSE 94; RESP 16; TEMP 36.2; O2SAT 98
== END 2024-11-29 19:08 | disposition home or self-care (01) | DRG 807 ==
PROVIDERS: Admitting Provider Advanced Practice Midwife; Referring Provider Advanced Practice Midwife; Visit Provider Advanced Practice Midwife
DX: O48.0 Post-term pregnancy (principal); Z37.0 Single live birth; O69.1XX0 Labor and delivery complicated by cord around neck, with compression, not applicable or unspecified; O99.02 Anemia complicating childbirth; Z3A.41 41 weeks gestation of pregnancy; Z87.59 Personal history of other complications of pregnancy, childbirth and the puerperium
CPT/HCPCS: 59025; 59050; 85025; 86780; 86850; 86900; 86901